=== PATIENT | female | born 1950 | race Caucasian/White ===

== ENCOUNTER 2019-06-03 05:57 | Inpatient (IN) | payer OTHER ==
--- NOTE | 2019-05-27 10:24 | RAD REPORT ---
EXAM DESCRIPTION: RAD - Chest Pa And Lat (2 Views) - 05/27/2019 10:03 am CLINICAL HISTORY: preop Chest pain. COMPARISON: Chest Pa And Lat (2 Views) dated 06/09/2016 FINDINGS: The lungs are mildly emphysematous but clear. The heart is mildly enlarged in size. No dis placed fractures. IMPRESSION: Mild COPD.
[2019-05-27 10:36] LABS: Absolute Lymphocytes (CBC) 1.9 K/uL (0.7-4.9); Basophils % 0.7 % (0-1.3); Hematocrit 42.4 % (36.0-45.0); Lymphocytes % 31.4 % (15.3-44.8); RBC Red Blood Cell Count 4.58 M/uL (3.86-4.86)
[2019-05-27 11:47] LABS: Urine Appearance CLEAR; Urine Bilirubin NEGATIVE (NEG); Urine Blood NEGATIVE (NEG); Urine Color YELLOW; Urine Glucose NEGATIVE (NEG); Urine Protein NEGATIVE (NEG); Urine Specific Gravity <=1.005 (1.005-1.030); Urine pH 7.5 (5.0-7.0)
[2019-05-27 11:53] LABS: Albumin 3.8 g/dL (3.4-5.0); Bilirubin Direct 0.2 mg/dL (0-0.2); Bilirubin Total 0.8 mg/dL (0.2-1.0); Protein, Total 7.2 g/dL (6.4-8.2)
[2019-05-27 12:05] LABS: ALT/SGPT 29 U/L (12-78); AST/SGOT 25 U/L (15-37); Albumin 3.7 g/dL (3.4-5.0); Alkaline Phosphatase 104 U/L (45-117); BUN Blood Urea Nitrogen 11 mg/dL (7-18); Bicarbonate 27 mmol/L (21-32); Bilirubin Total 0.7 mg/dL (0.2-1.0); Glucose Level 88 mg/dL (74-106); Potassium 4.4 mmol/L (3.5-5.1); Protein, Total 7.2 g/dL (6.4-8.2); Sodium Level 141 mmol/L (136-145)
[2019-05-27 12:23] LABS: Urine Microscopic Reflex ORDER UMIC
[2019-05-27 12:36] LABS: Urine Bacteria <20 /HPF (<20); Urine Culture Reflex Order NOT NEEDED; Urine RBC <5 /HPF (NONE SEEN)
[2019-06-03] MEDS ORDERED: Ringers Lactate 1,000 ML IV ONE ×2 (06:16→11:44)
[2019-06-03] MEDS ORDERED: CEFAZOLIN/SWI 1gm 1 GM/10 ML SYR ONE (06:17)
[2019-06-03] MEDS ORDERED: BUPIVACA 0.25%/EPI 0.0005% MDV 50 ML VIAL ONE ×2 (06:55→06:56)
[2019-06-03] MEDS ORDERED: NA CHLORIDE 0.9% 250 ML ONE (06:56)
[2019-06-03] MEDS ORDERED: BUPIVACA 0.5%/EPI 0.0005%/PF 30 ML VIAL ONE (06:56)
[2019-06-03] MEDS ORDERED: TRANEXAMIC ACID 1,000 MG in NA CHLORIDE 0.9% 50 ML IV SCH (07:15)
[2019-06-03] MEDS ORDERED: dexAMETHasone 4 MG/ML VIAL ONE (07:31)
[2019-06-03] MEDS ORDERED: FENTANYL CITR 250 MCG/5 ML ONE (07:31)
[2019-06-03] MEDS ORDERED: MIDAZOLAM HCL 2 MG/2 ML INJ ONE (07:31)
[2019-06-03] MEDS ORDERED: EPINEPHRINE/PF 1 MG/ML AMP ONE (07:31)
[2019-06-03] MEDS ORDERED: BUPIVACAINE 0.5% Inj,MDV 50 mL VIAL ONE (07:32)
[2019-06-03] MEDS ORDERED: LIDOCAINE 2% MPF 5 ML VIAL ONE (08:01)
[2019-06-03] MEDS ORDERED: PROPOFOL 200 MG/20 ML VIAL IV ONE (08:01)
[2019-06-03] MEDS ORDERED: ONDANSETRON 4 MG/2 ML VIAL ONE (08:34)
[2019-06-03] MEDS ORDERED: EPHEDRINE SULF 50 MG/ML VIAL ONE (09:15)
[2019-06-03] MEDS ORDERED: GLYCOPYRROLATE 0.2 MG/ML SYR ONE (09:16)
[2019-06-03] MEDS: HYDROMORPHONE HCL 1 MG/ML INJ ONE ×4 (11:41→12:10)
--- NOTE | 2019-06-03 11:50 | P.BOP ---
Preoperative diagnosis: PRIMARY OA RIGHT KNEE Postoperative diagnosis: SAME Primary procedure: RIGHT KNEE TOTAL KNEE ARTHROPLASTY WITH COMPUTER NAVIGATION Ppap Coordinator: ESTEFANI OLIVEROS (GAVE PAYROLL ASSISTANT SERVICES THROUGHOUT CASE) Estimated blood loss: 50 mL Specimen: BONE SHARDS AND SOFT TISSUE DEBRIDED Findings: SEVERE EBERNATED BONE MEDIAL COMPARTMENT Anesthesia: General Implants: FEM.PS2R; TIB.RPMTB2; TIB.WXUCBNDBWI8Y39.5mm; [id number]; Fluids & blood products: SIMP[KEVIN HV CEMENTw/GENT 2BATCHES; 0.25%MARCAINE w/ EPI 30 mL Transferred to: Recovery Room Condition: Good
[2019-06-03] MEDS ORDERED: HYDROMORPHONE ORAL 2 MG TAB PO PRN (11:53)
[2019-06-03] MEDS ORDERED: DOCUSATE NA 100 MG CAP PO PRN (11:53)
[2019-06-03] MEDS: Ringers Lactate 1,000 ML IV SCH (12:00)
[2019-06-03 12:08] LABS: Hematocrit 40.8 % (36.0-45.0)
--- NOTE | 2019-06-03 12:29 | RAD REPORT ---
EXAM DESCRIPTION: RAD - Knee Right 2 View - 06/03/2019 12:19 pm CLINICAL HISTORY: Postop right total knee prosthesis placement COMPARISON: None. FINDINGS: Right total knee prosthesis has been placed and is in good position. No suspicious or unex pected bone or implant finding. Normal postoperative air in the soft tissues. Skin afia are presen t anteriorly. No suspicious or unexpected finding.
[2019-06-03] MEDS ORDERED: MEPERIDINE HCL 50 MG/ML ONE (12:55)
[2019-06-03 15:22] VITALS: BMI 32.0
[2019-06-03] MEDS: ONDANSETRON 4 MG/2 ML VIAL IV PRN ×2 (17:25→23:21)
[2019-06-03] MEDS ORDERED: ALPRAZOLAM 0.5 MG TABLET PO PRN (18:02)
[2019-06-03] MEDS ORDERED: TRAMADOL HCL 50 MG TAB PO PRN (18:06)
--- NOTE | 2019-06-03 18:15 | P.CNS ---
Date of Consult: 06/03/19 Reason for Consult: Medical Management Requesting Physician: Brad Pino Primary Care Provider: Dr. Moody Chief Complaint: Status post total right knee replacement History of Present Illness: 68 yo CF presents to the hospital for right total knee replacement. I was consulted for medical management. Notes reviewed. Patient stable. Some nausea noted after surgery. Family at bedside. Allergies codeine Adverse Reaction (Unverified 05/27/19 09:39) Nausea/Vomiting Home medications list reviewed: Yes Home Medications: Alprazolam [Xanax] 0.5 mg PO DAILYPRN PRN 05/27/19 Amlodipine Besylate 10 mg PO [id number] 05/27/19 Atenolol [Tenormin] 50 mg PO BID 05/27/19 Furosemide [Lasix] 40 mg PO DAILY 05/27/19 L. Acidophilus/Pectin, [place] [Acidophilus Caplet] 1 each PO DAILY 05/27/19 Milk Thistle Seed Extract [Milk Thistle] 200 mg PO BID 05/27/19 Nitrofurantoin Monohyd/M-Cryst [Nitrofurantoin [place]-Mcr 100 mg] 100 mg PO BID Potassium Oral Tab [Klor-Con 10 mEq Tab] 20 meq PO DAILY 05/27/19 Trazodone [Desyrel] 50 mg PO BEDTIME 05/27/19 Vitamin E 400 unit PO DAILY 05/27/19 - Past Medical/Surgical History Diabetic: No -: hypertension -: hep c -: osteoarthritis -: cirrhosis -: anxiety -: left knee apa 1995 -: left knee surgery 1963 -: abd exploratory surg. 1975 Psychosocial/ Personal History: Patient lives at home. - Family History Mother Medical History: Hypertension Notes: father had lung ca - Social History Smoking Status: Current every day smoker Alcohol use: Yes CD- Drugs: No Caffeine use: Yes Place of Residence: Home Review of Systems is unable to be obtained Physical Examination Temp Pulse Resp BP Pulse Ox 97.3 F 62 16 105/74 94 06/03/19 16:00 06/03/19 16:00 06/03/19 16:00 06/03/19 16:00 06/03/19 16:00 General: Alert, In no apparent distress, Cooperative HEENT: Atraumatic Respiratory: Clear to auscultation bilaterally, Normal air movement Cardiovascular: Normal pulses, Regular rate/rhythm Gastrointestinal: Normal bowel sounds, Non-distended Musculoskeletal: Other (Knee in occilating machine. ) Neurological: Normal speech, Normal strength at 5/5 x4 extr, Normal tone Laboratory Data (last 24 hrs) 06/03/19 11:53: Hct Cancelled 06/03/19 11:53: Hgb 13.7, Hct 40.8 Conclusions/Impression: Impression: Status post knee replacement HTN Hepatitis C Anxiety Plan: Meds reviewed. Surgery reviewed. Will reassess patient in the am. Patient plans for home at discharge. Patient is stable at this time. Patient wants to use her own meds. Will follow along with Orthopedics Time Spent Managing Pts care (In Minutes): 20
[2019-06-03] MEDS: CEFAZOLIN/SWI 1gm 1 GM/10 ML SYR IVP SCH (18:37)
[2019-06-03] MEDS: ATENOLOL 50 MG TAB PO SCH (21:00)
[2019-06-03] MEDS: MILK THISTLE SEED EXTRACT 200 MG PO SCH (21:00)
[2019-06-03] MEDS: TRAZODONE 50 MG TABLET PO PRN (22:59)
[2019-06-04] MEDS: CEFAZOLIN/SWI 1gm 1 GM/10 ML SYR IVP SCH (01:30)
[2019-06-04] MEDS: AMLODIPINE 10 MG TAB PO SCH (06:00)
[2019-06-04 06:35] LABS: BUN Blood Urea Nitrogen 12 mg/dL (7-18); Bicarbonate 27 mmol/L (21-32); Glucose Level 113 mg/dL (74-106); Magnesium 2.2 mg/dL (1.8-2.4); Potassium 4.1 mmol/L (3.5-5.1); Sodium Level 143 mmol/L (136-145)
[2019-06-04] MEDS ORDERED: PNEUMOCOCCAL VACCINE 0.5 ML IMVAC ONE (08:00)
[2019-06-04] MEDS: Ringers Lactate 1,000 ML IV SCH (08:00)
[2019-06-04] MEDS: VITAMIN E 400 IU CAP PO SCH (08:37)
[2019-06-04] MEDS: LACTOBACILLUS/ACIDOPHILUS TAB PO SCH (08:38)
[2019-06-04] MEDS: POTASSIUM CL SA 10 MEQ TAB PO SCH (08:38)
[2019-06-04] MEDS: FUROSEMIDE 40 MG TABLET PO SCH (08:38)
[2019-06-04] MEDS: MILK THISTLE SEED EXTRACT 200 MG PO SCH ×2 (08:38→20:32)
[2019-06-04] MEDS: IBUPROFEN 400 MG TAB PO PRN ×2 (08:39→17:08)
[2019-06-04] MEDS: ATENOLOL 50 MG TAB PO SCH ×2 (08:39→20:30)
--- NOTE | 2019-06-04 09:31 | P.PN ---
Subjective Date of Service: 06/04/19 Primary Care Provider: Dr. Moody Chief Complaint: Status post total right knee replacement Subjective: Other (Patient stable this time. Still reports some mild pain.) Physical Examination - Vital Signs Temperature: 97.6 F Blood Pressure: 119/75 Pulse: 75 Respirations: 20 Pulse Ox (%): 99 - Physical Exam General: Alert, In no apparent distress, Oriented x3, Cooperative HEENT: Atraumatic Neck: Supple Respiratory: Clear to auscultation bilaterally, Normal air movement Cardiovascular: Normal pulses, Regular rate/rhythm Gastrointestinal: Normal bowel sounds Neurological: Normal speech, Normal strength at 5/5 x4 extr, Normal tone, Normal affect - Studies Laboratory Data (last 24 hrs) 06/04/19 05:40: Sodium 143, Potassium 4.1, BUN 12, Creatinine 0.52 L, Glucose 113 H, Magnesium 2.2 06/04/19 05:40: Hgb 13.0 06/03/19 11:53: Hct Cancelled 06/03/19 11:53: Hgb 13.7, Hct 40.8 Medications List Reviewed: Yes Assessment & Plan Discharge Plan: Home Plan to discharge in: 48 Hours Physician Review Additional Text: Impression: Severe right knee osteoarthritis Status post total right knee replacement, postop day 1 HTN Anxiety Plan: Medications reviewed. Blood pressure stable this time. Continue with DVT prophylaxis. Pain medications reviewed. Patient does not tolerate tramadol. Will add ibuprofen and [place] as needed for pain. Wean off IV pain medication. Physical therapy to be initiated. Encourage incentive spirometer. Dc IV fluids. Patient desires to go home at discharge. Will continue to see how she does over the next day or 2. Likely discharge as early as tomorrow or the following day pending clinical improvement. Will follow along with orthopedics. Time Spent Managing Pts Care (In Minutes): 55
[2019-06-04] MEDS: ONDANSETRON 4 MG/2 ML VIAL IV PRN ×3 (09:47→23:18)
[2019-06-04] MEDS: ENOXAPARIN 40 MG/0.4 ML SQ SCH (16:58)
--- NOTE | 2019-06-04 17:12 | P.PN ---
Date of Service: 06/04/19 (POD#1) S: THIS PATIENT WAS SEEN AFTER LUNCH HAVING EATEN HER FIRST MEAL. SHE IS QUITE CONCERNED AND CAUTIOUS ABOUT NAUSEA WHICH IS THE BASIS OF HER CONCERNED AND ALLERGIES TO OPIOIDS. FORTUNATELY, HER SCIATIC NERVE AND FEMORAL NERVE BLOCKS PERFORMED BY DR. TERI SMITH M.D. HAVE BEEN QUITE EFFECTIVE AND PROLONGED. O: VITAL SIGNS ARE STABLE, THE PATIENT IS AFEBRILE, HGB IS STABLE AT 13.0PAIN PERCEPTION HAS BEEN 2, 2, 7, 5, 0, 0/10 INTENSITY SO FAR. BANDAGE IS CLEAN DRY AND INTACT, AND X-RAY SHOWS EXCELLENT POSITION FOR PROSTHETIC COMPONENTS. NV EXAM IS INTACT WITH THE PATIENT DEMONSTRATING DORSIFLEXION OF TOES AND ANKLE WITH NORMAL SENSATION TO LOWER LEG, FOOT AND FIRST WEBSPACE. CPM WAS LEFT ON THROUGH THE NIGHT THE PATIENT WAS MORE COMFORTABLE WITH MOVEMENT AND DESCRIBED A DULL ACHE OCCURRING WHENEVER IT WAS STOPPED. PHYSICAL THERAPY MADE 51 FEET WITH FWW IN THE A.M., AND 170 FEET IN THE EARLY AFTERNOON SESSION. THE PATIENT HAS USED ONLY ONE TRAMADOL TABLET DESCRIBED UNSATISFACTORY. NORCO 7.5 /325 TABLETS ARE AVAILABLE TO BE USED TOLERATED. THE PATIENT'S NEAR PHOBIA REGARDING NAUSEA IS MAKING HER RATHER STOIC. A: GREAT PROGRESS POSTOP DAY #1, PROBABLY PARTLY DUE TO HER LONG LASTING NERVE BLOCKS. P: CONTINUE MOBILIZATION TOLERATED.
[2019-06-04] MEDS: MORPHINE 4 MG/ML SYR IV PRN ×2 (18:22→23:18)
[2019-06-04] MEDS: HYDROCODONE/APAP 7.5/325 MG TAB PO PRN (20:30)
[2019-06-04] MEDS: TRAZODONE 50 MG TABLET PO PRN (20:30)
[2019-06-04 22:07] VITALS: O2SAT 97
[2019-06-05] MEDS: MORPHINE 4 MG/ML SYR IV PRN (03:30)
[2019-06-05] MEDS: AMLODIPINE 10 MG TAB PO SCH (05:33)
[2019-06-05] MEDS: VITAMIN E 400 IU CAP PO SCH (08:14)
[2019-06-05] MEDS: LACTOBACILLUS/ACIDOPHILUS TAB PO SCH (08:14)
[2019-06-05] MEDS: HYDROCODONE/APAP 7.5/325 MG TAB PO PRN ×3 (08:14→21:11)
[2019-06-05] MEDS: POTASSIUM CL SA 10 MEQ TAB PO SCH (08:14)
[2019-06-05] MEDS: FUROSEMIDE 40 MG TABLET PO SCH (08:14)
[2019-06-05] MEDS: ATENOLOL 50 MG TAB PO SCH ×2 (08:15→21:11)
[2019-06-05] MEDS: MILK THISTLE SEED EXTRACT 200 MG PO SCH ×2 (08:15→21:00)
--- NOTE | 2019-06-05 10:04 | P.PN ---
Subjective Date of Service: 06/05/19 Primary Care Provider: Dr. Moody Chief Complaint: Status post total right knee replacement Subjective: Improving, Doing well Physical Examination - Vital Signs Temperature: 97.5 F Blood Pressure: 146/83 Pulse: 58 Respirations: 18 Pulse Ox (%): 97 - Physical Exam General: Alert, In no apparent distress, Oriented x3, Cooperative HEENT: Atraumatic Neck: Supple Respiratory: Clear to auscultation bilaterally, Normal air movement Cardiovascular: Normal pulses, Regular rate/rhythm Gastrointestinal: Normal bowel sounds, Soft and benign, Non-distended Neurological: Normal speech, Normal strength at 5/5 x4 extr, Normal tone, Normal affect - Studies Laboratory Data (last 24 hrs) 06/05/19 05:35: Hgb 11.6 L Medications List Reviewed: Yes Assessment & Plan Discharge Plan: Home Plan to discharge in: 24 Hours Physician Review Additional Text: Impression: Severe right knee osteoarthritis Status post total right knee replacement, postop day 2 HTN Anxiety Plan: Severe right knee osteoarthritis Status post total right knee replacement, postop day 2: Continue with physical therapy. Encourage incentive spirometer. Pain seems to be better controlled. Likely discharge as early as today or tomorrow pending ortho evaluation. Patient clinically stable for discharge. Home health and physical therapy has been arranged. Patient will continue with DVT prophylaxis at discharge. This will be arranged by orthopedics. I will turn the service over to Dr. Fan tomorrow. She will continue to follow along with Orthopedics. HTN: Continue with home medication. Anxiety: Continue with home medication. Time Spent Managing Pts Care (In Minutes): 55
[2019-06-05] MEDS: ENOXAPARIN 40 MG/0.4 ML SQ SCH (17:58)
--- NOTE | 2019-06-05 19:41 | P.PN ---
Date of Service: 06/05/19 (POD#2) S: THIS PATIENT WAS SEEN AT LUNCH EATING WITHOUT NAUSEA. SHE IS TOLERATING PAIN CONTROL WITH NORCO 7.5/325 AND MORPHINE IV. FORTUNATELY, HER SCIATIC NERVE AND FEMORAL NERVE BLOCKS CEASED TO HAVE EFFECT LAST NIGHT AND SHE HAS C/O DISCOMFORT WITH CPM USE. O: VITAL SIGNS ARE STABLE, THE PATIENT IS AFEBRILE, HGB DROPPED FROM 13.0 TO 11.6 THIS AM. PAIN PERCEPTION HAS BEEN 0, 0, 7, 7, 6, 5/10. BANDAGE IS CLEAN DRY AND INTACT. NV EXAM IS INTACT WITH THE PATIENT DEMONSTRATING DORSIFLEXION OF TOES AND ANKLE WITH NORMAL SENSATION TO LOWER LEG, FOOT AND FIRST WEBSPACE. CPM WAS REAPPLIED THIS AFTERNOON WITH EMPHASIS THAT MOTION MUST OCCUR ARE FIBROSIS WILL RUIN THE POSSIBILITY OF AN ACCEPTABLE RANGE OF MOTION. SHE IS ENCOURAGED TO USE HER PAIN MEDICATION NEEDED TO MAINTAIN USE OF THE CPM MACHINE WHILE IT'S AVAILABLE. SHE WENT 40' & 210' WITH PT IN THE A.M., AND 260' FEET IN THE AFTERNOON SESSION. A: GOOD PROGRESS POSTOP DAY #2, DESPITE NERVE BLOCKS ENDING. P: CONTINUE MOBILIZATION TOLERATED. PLAN DISCHARGE TOMORROW AFTER AM PT SESSION.
[2019-06-05] MEDS: TRAZODONE 50 MG TABLET PO PRN (21:11)
[2019-06-06] MEDS: AMLODIPINE 10 MG TAB PO SCH ×2 (06:00→06:19)
[2019-06-06] MEDS: HYDROCODONE/APAP 7.5/325 MG TAB PO PRN ×2 (06:19→13:02)
[2019-06-06] MEDS: ATENOLOL 50 MG TAB PO SCH (08:30)
[2019-06-06] MEDS: MILK THISTLE SEED EXTRACT 200 MG PO SCH (08:30)
[2019-06-06] MEDS: LACTOBACILLUS/ACIDOPHILUS TAB PO SCH (08:30)
[2019-06-06] MEDS: POTASSIUM CL SA 10 MEQ TAB PO SCH (08:31)
[2019-06-06] MEDS: FUROSEMIDE 40 MG TABLET PO SCH (08:33)
[2019-06-06] MEDS: VITAMIN E 400 IU CAP PO SCH (08:34)
[2019-06-06 12:19] VITALS: BP 122/71; TEMP 97.1
--- NOTE | 2019-06-06 13:34 | P.PN ---
Date of Service: 06/06/19 (POD#3) S: THIS PATIENT UP IN HALLWAY WITH PT. SHE WENT 260' WITH FWW THIS AM. O: VITAL SIGNS ARE STABLE, THE PATIENT IS AFEBRILE, HGB UP FROM 11.6 TO 12.1 THIS AM. PAIN PERCEPTION HAS BEEN 7, 6, 5, 0, 0/10. BANDAGE IS TO BE CHANGED PRIOR TO DISCHARGE. NV EXAM IS INTACT WITH THE PATIENT DEMONSTRATING DORSIFLEXION OF TOES AND ANKLE WITH NORMAL SENSATION TO LOWER LEG, FOOT AND FIRST WEBSPACE. CPM RUNNING AT 70* THIS AFTERNOON. PATIENT INSTRUCTED IN LEFT FOOT MOTOR TECHNIQUE FOR HOME CPM, INSURANCE REFUSED TO COVER MACHINE. SHE IS ENCOURAGED TO USE HER PAIN MEDICATION NEEDED PRIOR TO HH PT. A: GOOD PROGRESS POSTOP DAY #3, PATIENT AGREEABLE FOR DISCHARGE. P: CONTINUE MOBILIZATION AT HOME. PLAN DISCHARGE TODAY AFTER AFTERNOON PT SESSION IN PROGRESS. MY PAPERWORK [facility]YS [facility] CONFIRMED 05/20/19 9:00 AM. F/U MY OFFICE IN 10D FOR [place] OUT. RESTART ASA81 MG. DAILY. CONTINUE LOVENOX 40 MG SQ DAILY. HH PT FOR GAIT AND TRANSFERS WBAT RLE. NORCO 7.5 1 PO Q 6 HRS PRN PAIN,#40.
--- NOTE | 2019-07-02 17:09 | OP ---
Date of Procedure: 06/03/2019 Surgeon: Brad Pino MD Lubricator Granulator: Gwendolyn Manning, gave very necessary student assistance counselor services throughout the case. Preoperative Diagnosis: Primary osteoarthritis, right knee. Postoperative Diagnosis: Primary osteoarthritis, right knee. Procedure: Right total knee arthroplasty with computer navigation. Indications: This patient has had severe progressive osteoarthritis. She has elected to proceed aft er discussion of risks and benefits with all questions answered. Technique: The patient was taken to the operating room and given a general anesthesia. She was plac ed in the supine position with a bolster under the right hip. The tourniquet was applied to the prox imal right thigh. The limb was suspended in traction and prepping and draping of the right lower ext remity was carried out. An impervious drape was placed over the foot and ankle. The incision was dr awn over the anterior knee. Tourniquet was elevated to 250 mmHg. The incision was made longitudinal ly from 4 cm above the patella to 4 cm below. The medial parapatellar approach was utilized with dwight rsion of the patella. The patella was measured in thickness and then the 35 mm diameter patellar but ton was chosen as the best fit. The cutting jig was set and the articular surface was excised with o scillating saw. PEG holes were drilled. The prosthetic button was put in position and measured. Th e measurement was equal to that before the cut was made. Metal shield was placed after the prostheti c button was removed. The anterior knee was sharply debrided, removing portions of the anterior cruc iate ligament and the origin of the posterior cruciate ligament along with meniscal portions that cou ld be reached from the anterior aspect. There was also debridement of the anterior aspect of the dis nilton femur just above the articular margin. Then, 3 mm threaded pins were placed within the incision in the distal femur to support the femoral array and through puncture wounds in the mid tibial area t o support the tibial array. Once the arrays were positioned, then the limb was moved in circumductio n to determine the center of the femoral head rotation. The registration of the femur and tibia were carried out in sequence as indicated by the computer navigation program. This selected size 2 femor al and tibial components. These were excepted and the tibial cutting jig was navigated into position and secured the tibial cut was made and verified. A tensiometer was placed in the knee at that poin t. Small adjustments were made in the ligament balance and the cutting jig for the distal femur was navigated into position that cut was made. The 4 in 1 cutting jig was then navigated into position a nd the anterior cut was made for the distal femur that also was verified and then the additional post erior and chamfer cuts were made. The cutting box was placed in the center of the distal femur and t he reciprocating saw was used to remove the notch. The distal femoral prosthetic component trial was put in position and fit nicely. It was then removed. Preparation of the proximal tibia was accompl ished. The trials were placed in position. The knee had adequate extension and flexion and stabilit y. Therefore, all trial components were removed. Simpulse lavage was initiated and then the distal femur was dried with suction. Two batches of simplex HV cement with gentamicin were placed in a [employer]me nt gun for injection technique and the components were cemented in place first the tibial component a nd then the femoral component and then the patellar button. Excess cement was curetted away and the cement was allowed 18 minutes to set. The insert positioned for the cement to set was the 10 mm inse rt trial. The 12.5 mm trial was put in position and found stability to be improved and optimal. At that point, the permanent insert was inserted and range of motion was excellent, stability was excell ent. The knee was irrigated again and then closure effected with #1 Vicryl for fascial layers in int errupted sutures 2-0 Vicryl for subcutaneous layers and skin afia for the skin. The margins of th e skin incision were injected with 30 mL of 0.25% Marcaine with epi. The patient was taken to the re covery room with estimated blood loss 50 mL. The bandage applied was an Aquacel bandage covered with soft roll and an Jt wrap. In the recovery room, the patient was set up in a CPM machine moving 0 t o 60 degrees. The patient was in good condition and procedure was well tolerated. CARLEY/OBDULIA Voice ID: [id number] Report ID: [id number]
--- NOTE | 2019-07-12 08:53 | DS ---
Date of Discharge: 06/06/2019 Millicent Conte is a 68-year-old female, who suffered from primary osteoarthritis of the right knee with profound limitations and persistent pain. After discussion of risks and benefits, she elected to proceed with elective right total knee arthroplasty. The procedure was accomplished with computer navigation and approximately 50 mL of blood loss with insertion of femoral SIGMA femur, posterior stabilized size 2 right. The M.B.T. tibial tray was a rotating platform, size 2. Tibial insert was also a size 2 rotating platform posterior stabilized prosthesis 12.5 mm thick. An outside diameter of 35-mm oval dome patella was cemented along with the femoral and tibial prosthetic component with simplex HV cement with 2 batches placed in a cement gun for pressurized technique. At the end of the operation, 30 mL of 0.25% Marcaine were injected into the incision in soft tissue area. The patient was taken to the recovery room and placed in a CPM machine at 0-60 degrees range of motion set for a slow rate. Aquacel bandages were applied for sealing and protecting the incisions. Dr. Lawrence Ornelas was consulted for medical management as the patient has a history of hypertension, hepatitis C, osteoarthritis, cirrhosis, anxiety. On the first postop day, the patient was doing well except for concerns and problems with nausea limited pain control which was more prolonged than usual. Her vital signs were stable. Her hemoglobin was stable at 13.0. Pain chart was 2, 2, 7, 5, 0, 0/10 in intensity. X-ray showed excellent position for prosthetic components. Neurovascular exam was intact with the patient demonstrating dorsiflexion of toes and ankle with normal sensation to lower leg, foot, and the first webspace. CPM was left on through the night by the patient as she was more comfortable with movement and describes a dull ache occurring whenever it was stopped. The initial therapy effort went 51 feet with a front wheeled walker in the morning and 170 feet in the early afternoon session with a nerve block still performing pain control. The patient had used only 1 tramadol for pain, this was considered great progress for postop day #1. On postoperative day 2, the patient was seen eating at lunch without nausea. Her concerns about nausea were alleviated. She was tolerating pain control using Greenback 7.5/325 APAP and morphine IV. The CPM was now causing some discomfort and limited to 70 degrees. Vital signs were stable. The patient was afebrile with hemoglobin dropping from 13.0 to 11.6 in the morning tests. Pain perception was 0, 0, 7, 7, 6, 5/10. Bandage remained clean, dry, and intact. Neurovascular exam was intact. CPM was reapplied with the emphasis that the motion has to occur or fibrosis will rule out possibility of an acceptable range of motion. The patient had gone 40 feet and 210 feet with physical therapy in the morning and 260 feet in the afternoon session. This was excellent progress on postop day #2 despite the ending of nerve block pain control. On day 3, the patient was up in the hallway with physical therapy, having gone 260 feet with a front wheeled walker in the morning. Vital signs were stable. Hemoglobin was up from 11.6 to 12.1. Pain perception was 7, 6, 5, 0, 0/10. Bandage is to be changed prior to the patient's discharge. Neurovascular exam is intact with the patient demonstrating dorsiflexion of toes and ankle and normal sensation to the lower leg splint and first web space. CPM was running at 70 degrees. The patient's insurance would not allow a CPM for home use, the patient was instructed in using the left foot, has power for passive range of motion for the right knee while sitting on the edge of the bed. Discharge was planned for after the afternoon physical therapy session, which was in progress. [facility] had confirmed initiating in-home care on 05/20/2019 at 9 a.m. Follow up in my office is recommended for 10 days post discharge for afia out. She may restart her aspirin 81 mg tablets daily and continue Lovenox 40 mg subcu daily for total of 14 days postop. Home health physical therapy will be for gait and transfers, weightbearing as tolerated, right lower extremity. Greenback 7.5 one p.o. q.6 hours p.r.n. pain was prescribed with #40 to be dispensed. CARLEY/OBDULIA Voice ID: [id number] Report ID: [id number]
== END 2019-06-06 16:06 | disposition home health service (06) | DRG 470 ==
LOC: OR 05:57 → 2ND 11:53 → 4TH 06-05 17:37
PROVIDERS: ADMIT Orthopaedic Surgery; ATTEND Orthopaedic Surgery
PROC: 8E0YXBZ Computer Assisted Procedure of Lower Extremity (ICD-10-PCS; 2019-06-03)
PROC: 0SRC0J9 Replacement of Right Knee Joint with Synthetic Substitute, Cemented, Open Approach (ICD-10-PCS; principal; 2019-06-03 07:30)
DX: M17.11 Unilateral primary osteoarthritis, right knee (principal); I10 Essential (primary) hypertension; F17.210 Nicotine dependence, cigarettes, uncomplicated; F32.9 Major depressive disorder, single episode, unspecified; F41.9 Anxiety disorder, unspecified; I35.0 Nonrheumatic aortic (valve) stenosis; B19.20 Unspecified viral hepatitis C without hepatic coma; Z23 Encounter for immunization; Z88.5 Allergy status to narcotic agent
CPT/HCPCS: 36415; 71046; 80048; 80053; 80076; 81003; 81015; 83036; 83735; 85014; 85018; 85025; 85610; 85730; 86850; 86900; 86901; 88304; 88311; 97110; 97116; 97139; 97163; 97530; J0171; J0690; J1170; J1650; J2175; J2250; J2405; J2704; J3010

== ENCOUNTER 2019-10-15 05:50 | Inpatient (IN) | payer OTHER ==
--- NOTE | 2019-10-08 10:40 | EKG ---
Test Date: 2019-10-08 Test Time: 09:35:12 Glass Vial Filler: JAN MEASUREMENT RESULTS: Intervals: Rate: 48 RI: 182 QRSD: 92 QT: 468 QTc: 418 [place]: P: 52 RI: 182 QRS: 48 T: 59 INTERPRETIVE STATEMENTS: Marked sinus bradycardia Abnormal ECG No previous ECG available for comparison Electronically Signed On 10-08-19 10:39:39 NETWORK AND THREAT SUPPORT SPECIALIST by Dusty Baca
[2019-10-08 10:54] LABS: Absolute Lymphocytes (CBC) 1.9 K/uL (0.7-4.9); Basophils % 0.8 % (0-1.3); Hematocrit 40.5 % (36.0-45.0); MPV 9.7 fL (7.6-11.3); RBC Red Blood Cell Count 4.47 M/uL (3.86-4.86)
[2019-10-08 11:05] LABS: Protime INR 1.11
[2019-10-08 11:41] LABS: BUN Blood Urea Nitrogen 14 mg/dL (7-18); Bicarbonate 27 mmol/L (21-32); Glucose Level 91 mg/dL (74-106); Sodium Level 142 mmol/L (136-145)
[2019-10-15] MEDS ORDERED: Ringers Lactate 1,000 ML IV ONE (06:00)
[2019-10-15] MEDS ORDERED: CEFAZOLIN/SWI 2gm 2 GM/20 ML SYR ONE (06:00)
[2019-10-15] MEDS ORDERED: SCOPOLAMINE HYDROBROMIDE PATCH TD ONE (06:34)
[2019-10-15] MEDS ORDERED: LIDOCAINE 2% MPF 5 ML VIAL ONE ×2 (06:35→07:35)
[2019-10-15] MEDS ORDERED: NS 0.9% VIAL 20 ML ONE (06:35)
[2019-10-15] MEDS ORDERED: FENTANYL CITR 100 MCG/2 ML ONE (06:36)
[2019-10-15] MEDS ORDERED: MIDAZOLAM HCL 2 MG/2 ML INJ ONE ×2 (06:36)
[2019-10-15] MEDS ORDERED: dexAMETHasone 10 MG/ML VIAL ONE ×2 (06:36→07:53)
[2019-10-15] MEDS: BUPIVACA 0.5%/EPI 0.0005%/PF 30 ML VIAL ONE ×2 (06:58→09:37)
[2019-10-15] MEDS ORDERED: TRANEXAMIC ACID 1,000 MG in NA CHLORIDE 0.9% 50 ML IV SCH (07:15)
[2019-10-15] MEDS ORDERED: ROCURONIUM 50 MG/5 ML VIAL IV ONE (07:35)
[2019-10-15] MEDS ORDERED: PROPOFOL 200 MG/20 ML VIAL IV ONE (07:35)
[2019-10-15] MEDS ORDERED: KETOROLAC 30 MG/ML INJ ONE (07:53)
[2019-10-15] MEDS ORDERED: KETAMINE HCL 500 MG/5 ML VIAL ONE (07:53)
[2019-10-15] MEDS ORDERED: ONDANSETRON 4 MG/2 ML VIAL ONE (07:55)
[2019-10-15] MEDS ORDERED: GLYCOPYRROLATE 0.2 MG/ML SYR ONE (08:16)
[2019-10-15] MEDS: Ringers Lactate 1,000 ML IV ONE ×2 (08:41→09:02)
[2019-10-15] MEDS ORDERED: NEOSTIGMINE 1 MG/ML -5 ML ONE (09:40)
[2019-10-15] MEDS ORDERED: ALPRAZOLAM 1 MG TABLET PO PRN (10:40)
--- NOTE | 2019-10-15 10:40 | P.BOP ---
Preoperative diagnosis: left knee osteoarthritis Postoperative diagnosis: same Primary procedure: left total knee arthroplasty Acid Painter: NONE,NONE Estimated blood loss: 20 cc Specimen: left knee bone remnants Findings: see dictation Anesthesia: General Complications: None Implants: Biomet-Zim Persona Size 5 STD femur, E tibia, 11 mm poly, 32 mm patella Fluids & blood products: per anesthesia; TT: 85 mins @ 300 mmHg Transferred to: Recovery Room Condition: Good
[2019-10-15] MEDS ORDERED: ONDANSETRON 4 MG/2 ML VIAL IV PRN (10:41)
[2019-10-15] MEDS ORDERED: DOCUSATE NA 100 MG CAP PO PRN (10:41)
[2019-10-15] MEDS ORDERED: PROMETHAZINE 25 MG/ML VIAL ONE (10:47)
[2019-10-15] MEDS ORDERED: TRAMADOL HCL 50 MG TAB PO PRN (10:49)
[2019-10-15] MEDS: HYDROMORPHONE HCL 1 MG/ML INJ ONE ×2 (10:49→11:01)
--- NOTE | 2019-10-15 11:38 | RAD REPORT ---
EXAM DESCRIPTION: RAD - Knee Left 2 View - 10/15/2019 11:07 am CLINICAL HISTORY: Left knee surgery FINDINGS: Left knee arthroplasty has been performed. Prosthesis is in good position. No fracture or dislocation is seen
[2019-10-15 12:07] LABS: Hematocrit 37.5 % (36.0-45.0)
[2019-10-15 14:01] VITALS: BMI 32.1
[2019-10-15] MEDS: CEFAZOLIN/SWI 1gm 1 GM/10 ML SYR IV SCH (17:24)
[2019-10-15] MEDS: HYDROCODONE/APAP 7.5/325 MG TAB PO PRN (20:32)
[2019-10-15] MEDS: atenoloL 50 MG TAB PO SCH (22:05)
[2019-10-15] MEDS: TRAZODONE 50 MG TABLET PO SCH (22:06)
[2019-10-15] MEDS: GABAPENTIN 100 MG CAP PO SCH (22:06)
[2019-10-16] MEDS: CEFAZOLIN/SWI 1gm 1 GM/10 ML SYR IV SCH ×2 (01:22→08:55)
[2019-10-16] MEDS: HYDROCODONE/APAP 7.5/325 MG TAB PO PRN ×3 (01:34→17:32)
[2019-10-16] MEDS: ENOXAPARIN 30 MG/0.3 ML SQ SCH ×2 (05:46→17:33)
[2019-10-16] MEDS: AMLODIPINE 5 MG TAB PO SCH (05:47)
[2019-10-16] MEDS: FUROSEMIDE 40 MG TABLET PO SCH (08:54)
[2019-10-16] MEDS: atenoloL 50 MG TAB PO SCH ×2 (08:55→20:42)
[2019-10-16] MEDS: POTASSIUM CL SA 10 MEQ TAB PO SCH (08:55)
[2019-10-16] MEDS: GABAPENTIN 100 MG CAP PO SCH ×2 (08:55→20:39)
[2019-10-16] MEDS: CELECOXIB 100 MG CAPSULE PO SCH (08:55)
[2019-10-16] MEDS: MORPHINE 2 MG/ML SYR IV PRN (09:02)
--- NOTE | 2019-10-16 11:54 | P.PN ---
Subjective Date of Service: 10/16/19 Chief Complaint: s/p left TKA Subjective: Ambulating, Improving, Working w/ PT Physical Examination - Vital Signs Temperature: 97.5 F Blood Pressure: 96/62 Pulse: 51 Respirations: 18 Pulse Ox (%): 98 - Physical Exam General: Alert, In no apparent distress Musculoskeletal: Other (LLE: dressing c/d/i; +EHL/GSC/TA; sensation grossly intact distally) - Studies Laboratory Data (last 24 hrs) 10/15/19 11:07: Hgb 12.9, Hct 37.5 Assessment And Plan - Plan Millicent is a 68 yo female s/p L TKA POD#1 -continue with PT; WBAT LLE -pain control -lovenox for DVT prophylaxis -d/c home tomorrow
[2019-10-16] MEDS: TRAZODONE 50 MG TABLET PO SCH (20:39)
[2019-10-17] MEDS: HYDROCODONE/APAP 7.5/325 MG TAB PO PRN (01:04)
[2019-10-17] MEDS: MORPHINE 2 MG/ML SYR IV PRN (03:22)
[2019-10-17] MEDS: ENOXAPARIN 30 MG/0.3 ML SQ SCH (05:40)
[2019-10-17] MEDS: AMLODIPINE 5 MG TAB PO SCH (05:40)
[2019-10-17] MEDS: atenoloL 50 MG TAB PO SCH (08:49)
[2019-10-17] MEDS: CELECOXIB 100 MG CAPSULE PO SCH (08:50)
[2019-10-17] MEDS: FUROSEMIDE 40 MG TABLET PO SCH (08:50)
[2019-10-17] MEDS: GABAPENTIN 100 MG CAP PO SCH (08:50)
[2019-10-17] MEDS: POTASSIUM CL SA 10 MEQ TAB PO SCH (08:50)
[2019-10-17 08:56] VITALS: O2SAT 97
--- NOTE | 2019-10-17 08:57 | OP ---
Date of Procedure: 10/15/2019 Surgeon: All Muñiz MD Preoperative Diagnosis: Left knee osteoarthritis. Postoperative Diagnosis: Left knee osteoarthritis. Procedure Performed: Left total knee arthroplasty. Anesthesia: General. Fluids: Per Anesthesia record. Estimated Blood Loss: 20 mL. Tourniquet Time: 85 minutes at 300 mmHg. Complications: None. Implants: Biomet Rosendo Persona knee for a size 5 standard CR femur, and size E tibia 11 mm CR poly, and size 32 mm patella. Indications For Procedure: Millicent is a 68-year-old female who presented to my clinic with end-stage osteoarthritis of her left knee. Has failed conservative treatment measures including corticosteroid injections, NSAIDs, with pain affecting her activities of daily living. I discussed with the patient at length risks and benefits associated with operative and nonoperative treatment. She expressed understanding and elected to proceed with operative treatment. Description Of Procedure: After informed consent, the patient was identified in the preoperative holding area. The left lower extremity was marked. The patient was then brought back to the PACU where she underwent an adductor canal block for aid with postoperative pain control by anesthesia. She was then taken back to the operating room, transferred to the operating table in supine fashion, placed under general anesthesia. The left lower extremity was then prepped and draped in usual sterile fashion. A time-out was initiated. Correct patient and procedure were confirmed and identified. The patient had received her preoperative prophylactic antibiotics. The left lower extremity was then exsanguinated using an Esmarch. Tourniquet was inflated to 300 mmHg. A 15 cm longitundina incision was made centered over the patella and extended proximally and distally. Dissection was then taken down to the extensor mechanism, which was followed by medial parapatellar arthrotomy performed using a 10 blade. The patella was everted, was noted to have significant chondromalacia and arthritis changes. Osteophytes were then debrided using a rongeur. The medial aspect of the extensor mechanism was then carefully dissected off the proximal tibia for exposure. A fat pad was then excised as well as lateral and medial meniscus and the ACL The knee was then placed into flexion. Proximal synovium was then debrided using Bovie electrocautery. The guides had been made preoperatively using MRI of her left knee and cutting guide was then placed on this over the distal femur. Once in proper position, guide pins were placed. The distal cutting guide was then placed on the anterior femur and distal cuts were then made. Chamfer cutting guide was placed on the distal end of the femur and anteroposterior cuts as well as chamfer cuts were made. Bone remnants were then send to the back table and send for pathology. Next, attention was taken to the proximal tibia where a cutting jig was placed on the proximal tibia. Guide pins were placed, alignment radha was used to ensure proper alignment as well as posterior slope. Once this was confirmed, a cutting jig was then placed over the guide pins and proximal tibia was cut. Javid wing was used prior to the cuts to ensure proper depth of the cuts and this was confirmed. A 10 mm spacer block was then placed and there was good overall fit both extension and flexion. Trial implants were placed and there was good overall balance, flexion-extension using an 11 mm spacer. Next, attention was taken to the patella, calipers were used to measure the depth of the patella and 8 mm was cut off from the surface of the patella using the patellar cutting guide. It was measured as size 32, patella was selected. Patella was drilled. Tibial and femoral trial components were the ranged and there was good overall range of motion as well as alignment and stability, the trial implants were removed. The wound was then irrigated thoroughly, was pulse lavaged. Local anesthetic with epinephrine was then injected into the posterior capsule, medial and lateral aspect of the knee as well as the periosteum. When this was completed the cement was prepared on the back table and was placed on the implants and on the tibia and femur. A size E tibia wa placed followed by a size 5 standard CR femur, excess cement was removed using a [place] elevator. Cement was then placed on the undersurface of the patella and a size 32 patella was put into position. The knee was held in full extension and as the cement hardened. Once the cement hardened, all excess cement was removed using osteotome then [place] elevator. The tourniquet was let down. Hemostasis was achieved using Bovie electrocautery. The extensor mechanism was approximated using an interrupted and running #1 Vicryl. The fascia was then approximated using an 0 Vicryl. Subcutaneous tissue was approximated using a 2-0 Vicryl. Skin was approximated using afia. The knee was ranged. The patient had full range of motion with good overall tracking of the patella and good flexion and extension with varus-valgus stability. Sterile dressings were applied. The patient was awakened and transferred to PACU in stable condition. Postoperative Plan: She will be admitted to the floor for routine pain control , physical therapy, and monitoring of her blood pressure with history of hypertension. She will stay at least 2 midnights and we will monitor her H and H postoperatively. JUAN JOSE/OBDULIA Voice ID: [id number] Report ID: [id number]
--- NOTE | 2019-10-17 11:55 | P.DS ---
Admission Date: 10/15/19 Discharge Date: 10/17/19 Disposition: ROUTINE DISCHARGE Discharge Condition: GOOD Reason for Admission: s/p left TKA Consultations: none Procedures: left total knee arthroplasty on 10/15/2019 Brief History of Present Illness: Millicent is a 68 yo female w/ PMHx of HTN admitted after L TKA on 10/15/2019 in stable condition. Hospital Course: Millicent did well postoperatively. She was transferred to the floor in stable condition and physical therapy was consulted. Her vital signs remained stable during her stay and she was discharged in stable condition and her pain controlled on 10/18/2019. She was given enoxaparin while in the hospital for DVT prophylaxis and was discharged with Xarelto for home DVT prophylaxis. Vital Signs/Physical Exam: Temp Pulse Resp BP Pulse Ox 97.8 F 62 17 117/57 L 97 10/17/19 08:00 10/17/19 08:50 10/17/19 08:00 10/17/19 08:50 10/17/19 08:00 Laboratory Data at Discharge: WBC 6.6 K/uL (4.3-10.9) 10/08/19 09:45 Hgb 12.9 g/dL (12.0-15.0) 10/15/19 11:07 Hct 37.5 % (36.0-45.0) 10/15/19 11:07 Plt Count 117 K/uL (152-406) L 10/08/19 09:45 PT 13.1 SECONDS (9.5-12.5) H 10/08/19 09:45 INR 1.11 10/08/19 09:45 APTT 30.9 SECONDS (24.3-36.9) 10/08/19 09:45 Sodium 142 mmol/L (136-145) 10/08/19 09:45 Potassium 4.0 mmol/L (3.5-5.1) 10/08/19 09:45 BUN 14 mg/dL (7-18) 10/08/19 09:45 Creatinine 0.54 mg/dL (0.55-1.3) L 10/08/19 09:45 Glucose 91 mg/dL (74-106) 10/08/19 09:45 Home Medications: Alprazolam [Xanax] 1 mg PO DAILYPRN PRN 05/27/19 Amlodipine Besylate 5 mg PO [id number] 05/27/19 Atenolol [Tenormin*] 50 mg PO BID 05/27/19 Furosemide [Lasix*] 40 mg PO DAILY 05/27/19 L. Acidophilus/Pectin, [place] [Acidophilus Caplet] 1 each PO DAILY 05/27/19 Milk Thistle Seed Extract [Milk Thistle] 200 mg PO BID 05/27/19 Potassium Oral Tab [Klor-Con 10 mEq Tab*] 20 meq PO DAILY 05/27/19 Trazodone [Desyrel*] 50 mg PO BEDTIME 05/27/19 Vitamin E 400 unit PO DAILY 05/27/19 Gabapentin [Neurontin*] 100 mg PO BID 10/08/19 Naproxen Sodium [Aleve] 220 mg PO DAILY 10/08/19 Hydrocodone 7.5/APAP 325 [Clarence 7.5/325 mg*] 1 tab PO Q4H PRN tab 10/17/19 Patient Discharge Instructions: keep dressing clean and dry; change aquacell as needed; begin taking Xarelto tomorrow morning (10/18/2019) and take once daily Diet: Regular Activity: Weight bearing as tolerated Followup: All Muñiz MD [ACTIVE - CAN ADMIT] - 1-2 Weeks
[2019-10-17 15:10] VITALS: BP 125/73; TEMP 97.7
== END 2019-10-17 12:24 | disposition home or self-care (01) | DRG 470 ==
LOC: OR 05:50 → 2ND 10:42
PROVIDERS: ADMIT Orthopaedic Surgery Sports Medicine; ATTEND Orthopaedic Surgery Sports Medicine
PROC: 0SRD0J9 Replacement of Left Knee Joint with Synthetic Substitute, Cemented, Open Approach (ICD-10-PCS; principal; 2019-10-15 07:30)
DX: M17.12 Unilateral primary osteoarthritis, left knee (principal); I10 Essential (primary) hypertension; F41.9 Anxiety disorder, unspecified; Z96.651 Presence of right artificial knee joint
CPT/HCPCS: 36415; 80048; 85014; 85018; 85025; 85610; 85730; 88304; 88305; 88311; 93005; 97116; 97139; 97161; 97530; J0690; J1100; J1170; J1650; J2250; J2270; J2405; J2550; J2704; J2710; J3010; J7120

== ENCOUNTER 2019-10-25 10:58 | Emergency (ER) | payer OTHER ==
[2019-10-25 12:57] LABS: Absolute Lymphocytes (CBC) 1.4 K/uL (0.7-4.9); Basophils % 0.4 % (0-1.3); Hematocrit 32.8 % (36.0-45.0); Lymphocytes % 22.3 % (15.3-44.8); MPV 9.6 fL (7.6-11.3); RBC Red Blood Cell Count 3.58 M/uL (3.86-4.86)
[2019-10-25 13:09] LABS: ALT/SGPT 26 U/L (12-78); AST/SGOT 14 U/L (15-37); Albumin 3.6 g/dL (3.4-5.0); Alkaline Phosphatase 102 U/L (45-117); BUN Blood Urea Nitrogen 9 mg/dL (7-18); Bicarbonate 27 mmol/L (21-32); Bilirubin Total 1.3 mg/dL (0.2-1.0); Glucose Level 99 mg/dL (74-106); Potassium 3.9 mmol/L (3.5-5.1); Sodium Level 144 mmol/L (136-145)
--- NOTE | 2019-10-25 13:09 | RAD REPORT ---
EXAM DESCRIPTION: RAD - Knee Left 3 View - 10/25/2019 12:06 pm CLINICAL HISTORY: Left knee pain FINDINGS: Left knee arthroplasty The prosthesis is in good position Medial soft tissue swelling is present. No fracture or dislocation is seen.
--- NOTE | 2019-10-25 13:10 | RAD REPORT ---
EXAM DESCRIPTION: USExtremduarte Venous Uni Ltd10/25/2019 12:34 pm CLINICAL HISTORY: left leg pain and swelling. COMPARISON: June 2019 FINDINGS: Left common femoral, superficial femoral, popliteal and posterior tibial veins are compre ssible and demonstrate augmentation. Doppler demonstrates good flow. IMPRESSION: No evidence of deep venous thrombosis involving the left lower extremity.
[2019-10-25 13:37] LABS: Protime INR 1.79
--- NOTE | 2019-10-25 13:44 | EDPHYS ---
Physician Documentation [facility] Name: Millicent Conte Age: 68 yrs Sex: Female : 1950 Arrival Date: 10/25/2019 Time: 11:03 Bed 17 Private MD: All Muñiz ED Physician Tomy Garcia HPI: 10/25 12:22 This 68 yrs old Female presents to ER via Ambulatory with complaints of Leg nh Swelling, Foot Pain, Post Surgical Pain. 12:22 The patient presents with pain, swelling, tenderness. The complaints affect the left nh knee. Onset: The symptoms/episode began/occurred yesterday. Associated signs and symptoms: The patient has no apparent associated signs or symptoms. Severity of symptoms: At their worst the symptoms were moderate, just prior to arrival, in the emergency department the symptoms are unchanged. Patient had Total knee replacement on left 10/15/19. Patient reports increase in swelling since yesterday with increased pain. Called dr brooks office and was told to come here to R/) infection. Denies fever.. Historical: - Allergies: : Codeine; hb - Immunization history:: Adult Immunizations up to date. - Social history:: Smoking status: Patient/guardian denies using tobacco. - Ebola Screening: : No symptoms or risks identified at this time. ROS: 12:22 Constitutional: Negative for fever, chills, and weight loss, Eyes: Negative for injury, nh pain, redness, and discharge, ENT: Negative for injury, pain, and discharge, Neck: Negative for injury, pain, and swelling, Cardiovascular: Negative for chest pain, palpitations, and edema, Respiratory: Negative for shortness of breath, cough, wheezing, and pleuritic chest pain, Abdomen/GI: Negative for abdominal pain, nausea, vomiting, diarrhea, and constipation, Back: Negative for injury and pain, : Negative for injury, bleeding, discharge, and swelling, Skin: Negative for injury, rash, and discoloration, Neuro: Negative for headache, weakness, numbness, tingling, and seizure, Psych: Negative for depression, anxiety, suicide ideation, homicidal ideation, and hallucinations. 12:22 MS/extremity: Positive for pain, swelling, tenderness, of the left knee. Exam: 12:22 Constitutional: This is a well developed, well nourished patient who is awake, alert, nh and in no acute distress. Head/Face: Normocephalic, atraumatic. Eyes: Pupils equal round and reactive to light, extra-ocular motions intact. Lids and lashes normal. Conjunctiva and sclera are non-icteric and not injected. Cornea within normal limits. Periorbital areas with no swelling, redness, or edema. ENT: Nares patent. No nasal discharge, no septal abnormalities noted. Tympanic membranes are normal and external auditory canals are clear. Oropharynx with no redness, swelling, or masses, exudates, or evidence of obstruction, uvula midline. Mucous membranes moist. Neck: Trachea midline, no thyromegaly or masses palpated, and no cervical lymphadenopathy. Supple, full range of motion without nuchal rigidity, or vertebral point tenderness. No Meningismus. Chest/axilla: Normal chest wall appearance and motion. Nontender with no deformity. No lesions are appreciated. Cardiovascular: Regular rate and rhythm with a normal S1 and S2. No gallops, murmurs, or rubs. Normal PMI, no JVD. No pulse deficits. Respiratory: Lungs have equal breath sounds bilaterally, clear to auscultation and percussion. No rales, rhonchi or wheezes noted. No increased work of breathing, no retractions or nasal flaring. Abdomen/GI: Soft, non-tender, with normal bowel sounds. No distension or tympany. No guarding or rebound. No evidence of tenderness throughout. Back: No spinal tenderness. No costovertebral tenderness. Full range of motion. Neuro: Awake and alert, GCS 15, oriented to person, place, time, and situation. Cranial nerves II-XII grossly intact. Motor strength 5/5 in all extremities. Sensory grossly intact. Cerebellar exam normal. Normal gait. 12:22 Musculoskeletal/extremity: Extremities: noted in the left knee: pain, swelling, tenderness, ROM: limited active range of motion due to pain, in the left knee, limited passive range of motion due to pain, in the left knee, Circulation is intact in all extremities. Sensation intact. Weight bearing: can bear weight with assistance only, uses walker. 12:22 Skin: Appearance: normal except for affected area, Patient has bruising to left upper thigh, knee area and left foot. Vital Signs: 11:31 BP 156 / 78; Pulse 63; Resp 16; Temp 98.3; Pulse Ox 99% on R/A; Weight 77.11 kg; Height hb 5 ft. 1 in. (154.94 cm); Pain 8/10; 13:35 BP 140 / 91; Pulse 60; Resp 18; Pulse Ox 99% on R/A; Pain 0/10; em 11:31 Body Mass Index 32.12 (77.11 kg, 154.94 cm) hb MDM: 11:36 Patient medically screened. me 13:42 Data reviewed: vital signs, nurses notes, lab test result(s), radiologic studies, I nh have discussed the patient's presentation/case with the attending Emergency Department Physician; and as a result, I will discharge patient. Counseling: I had a detailed discussion with the patient and/or guardian regarding: the historical points, exam findings, and any diagnostic results supporting the discharge/admit diagnosis, lab results, radiology results, the need for outpatient follow up, to return to the emergency department if symptoms worsen or persist or if there are any questions or concerns that arise at home. 10/25 11:47 Order name: CBC with Diff; Complete Time: 13:06 me 10/25 11:47 Order name: CMP; Complete Time: 13:19 me 10/25 11:47 Order name: Knee Left 3 View XRAY; Complete Time: 13:19 me 10/25 11:47 Order name: US Extremity Venous Unilateral Ltd; Complete Time: 13:19 me 10/25 11:47 Order name: PT-INR; Complete Time: 13:41 me 10/25 11:47 Order name: Ptt, Activated; Complete Time: 13:41 me Administered Medications: No medications were administered Disposition: 15:07 Co-signature as Attending Physician, Tomy Garcia MD. rn Disposition: 10/25/19 13:43 Discharged to Home. Impression: Pain in left knee. - Condition is Stable. - Discharge Instructions: Knee Pain. - Medication Reconciliation Form, Thank You Letter, Antibiotic Education, Prescription Opioid Use form. - Follow up: Private Physician; When: 2 - 3 days; Reason: Recheck today's complaints. - Problem is new. - Symptoms are unchanged. Signatures: Dispatcher [employer] EDNelida Santiago, PHOTOGRAPHY INSTRUCTOR PHOTOGRAPHY INSTRUCTOR me Cam Bergeron, WEDDING MAKEUP ARTIST WEDDING MAKEUP ARTISTTomy Pimentel MD MD rn Emili Herman RN RN Corrections: (The following items were deleted from the chart) 13:57 13:43 10/25/2019 13:43 Discharged to Home. Impression: Pain in left knee. Condition is em Stable. Forms are Medication Reconciliation Form, Thank You Letter, Antibiotic Education, Prescription Opioid Use. Follow up: Private Physician; When: 2 - 3 days; Reason: Recheck today's complaints. Problem is new. Symptoms are unchanged. nh
--- NOTE | 2019-10-25 13:44 | ER ---
Nurse's Notes [facility] Name: Millicent Conte Age: 68 yrs Sex: Female : 1950 Arrival Date: 10/25/2019 Time: 11:03 Bed 17 Private MD: All Muñiz Diagnosis: Pain in left knee Presentation: 10/25 11:29 Presenting complaint: Had Left total knee replacement by Dr. Muñiz 10/15, c/o increasing hb pain and bleeding from back of knee and swelling of left foot. Transition of care: patient was not received from another setting of care. Onset of symptoms was October 25, 2019. Risk Assessment: Do you want to hurt yourself or someone else? Patient reports no desire to harm self or others. Initial Sepsis Screen: Does the patient meet any 2 criteria? No. Patient's initial sepsis screen is negative. Does the patient have a suspected source of infection? No. Patient's initial sepsis screen is negative. Care prior to arrival: None. 11:29 Method Of Arrival: Ambulatory hb 11:29 Acuity: HELEN 3 hb Historical: - Allergies: 11:31 Codeine; hb - Immunization history:: Adult Immunizations up to date. - Social history:: Smoking status: Patient/guardian denies using tobacco. - Ebola Screening: : No symptoms or risks identified at this time. Screenin:10 Abuse screen: Denies threats or abuse. Nutritional screening: No deficits noted. em Tuberculosis screening: No symptoms or risk factors identified. Fall Risk None identified. Assessment: 12:00 General: Appears in no apparent distress. uncomfortable, Behavior is calm, cooperative, em appropriate for age, Denies fever. Pain: Complains of pain in left knee Pain currently is 8 out of 10 on a pain scale. Neuro: Level of Consciousness is awake, alert, obeys commands, Oriented to person, place, time, situation, Appropriate for age. Cardiovascular: Capillary refill < 3 seconds Patient's skin is warm and dry. Respiratory: Airway is patent Respiratory effort is even, unlabored, Respiratory pattern is regular, symmetrical. Derm: Wound noted posterior aspect of left knee surgical dressing in place on left knee, no drainage noted from dressing. Musculoskeletal: Capillary refill < 3 seconds, Range of motion: limited in left knee Swelling present in left leg. 13:24 Reassessment: Patient appears in no apparent distress at this time. Patient and/or em family updated on plan of care and expected duration. Pain level reassessed. Patient is alert, oriented x 3, equal unlabored respirations, skin warm/dry/pink. Vital Signs: 11:31 BP 156 / 78; Pulse 63; Resp 16; Temp 98.3; Pulse Ox 99% on R/A; Weight 77.11 kg; Height hb 5 ft. 1 in. (154.94 cm); Pain 8/10; 13:35 BP 140 / 91; Pulse 60; Resp 18; Pulse Ox 99% on R/A; Pain 0/10; em 11:31 Body Mass Index 32.12 (77.11 kg, 154.94 cm) hb ED Course: 11:03 Patient arrived in ED. as 11:03 Alex Ramirez MD is Private Physician. as 11:04 All Muñiz MD is Private Physician. as 11:31 Triage completed. hb 11:31 Arm band placed on. hb 11:36 Nelida Roldan FNP is PHCP. nh 11:36 Tomy Garcia MD is Attending Physician. nh 11:38 Cam Bergeron LVN is Primary Nurse. em 12:06 Knee Left 3 View XRAY In Process Unspecified. EDMS 12:10 Patient has correct armband on for positive identification. Bed in low position. Call em light in reach. Side rails up X2. Adult w/ patient. Pulse ox on. NIBP on. 12:10 Initial lab(s) drawn, by me, sent to lab. Inserted saline lock: 24 gauge in left hand, em using aseptic technique. Blood collected. 12:33 Ultrasound completed. Patient tolerated well. sg3 12:34 US Extremity Venous Unilateral Ltd In Process Unspecified. EDMS 13:56 No provider procedures requiring assistance completed. IV discontinued, intact, em bleeding controlled, No redness/swelling at site. Pressure dressing applied. Administered Medications: No medications were administered Outcome: 13:43 Discharge ordered by . nh 13:56 Discharged to home ambulatory, with family. em 13:56 Condition: good 13:56 Discharge instructions given to patient, family, Instructed on discharge instructions, follow up and referral plans. wound care, Demonstrated understanding of instructions, follow-up care, medications, wound care. 13:57 Patient left the ED. em Signatures: Dispatcher [employer] EDNelida Santiago, TAILINGS MAN TAILINGS MAN id Cam Bergeron, PROCESSING TECHNOLOGIST PROCESSING TECHNOLOGIST Pao Steen Heather, RN RN Archana Gutierrez sg3
[2019-10-25 15:59] VITALS: TEMP 98.3; O2SAT 99
[2019-10-25 16:00] VITALS: BP 140/91
== END 2019-10-25 13:57 | disposition home or self-care (01) ==
LOC: ER 10:58
DX: M25.562 Pain in left knee (principal); Z96.652 Presence of left artificial knee joint; Z88.5 Allergy status to narcotic agent
CPT/HCPCS: 36415; 80053; 85025; 85610; 85730; 93971; 99284

== ENCOUNTER 2022-08-17 11:06 | Day surgery (SDC) | payer OTHER ==
--- NOTE | 2022-08-14 16:28 | RAD REPORT ---
EXAM DESCRIPTION: Sebastián Hemphill (2 Views)08/14/2022 4:20 pm CLINICAL HISTORY: Hypertension/preop COMPARISON: 2019 FINDINGS: The lungs appear clear of acute infiltrate. The heart is borderline enlarged IMPRESSION: No acute abnormalities displayed
[2022-08-14 17:00] LABS: SARS-CoV-2 Antigen Rapid Res Negative (Negative)
[2022-08-14 17:04] LABS: Absolute Lymphocytes (CBC) 2.1 K/uL (0.7-4.9); Hematocrit 42.5 % (36.0-45.0); Lymphocytes % 33.2 % (15.3-44.8); MCV 93.2 fL (80-100); MPV 9.7 fL (7.6-11.3); RBC Red Blood Cell Count 4.56 M/uL (3.86-4.86)
[2022-08-14 17:07] LABS: Protime INR 1.11
[2022-08-14 17:18] LABS: Potassium 3.7 mmol/L (3.5-5.1)
--- NOTE | 2022-08-16 06:35 | EKG ---
Test Date: 2022-08-14 Test Time: 15:51:32 Lead Systems Architect: MIGUEL MEASUREMENT RESULTS: Intervals: Rate: 41 OH: 180 QRSD: 98 QT: 512 QTc: 422 [place]: P: 35 OH: 180 QRS: 3 T: 33 INTERPRETIVE STATEMENTS: Marked sinus bradycardia Abnormal ECG Compared to ECG 10/08/2019 09:35:12 No significant changes Electronically Signed On 08-16-22 06:31:36 CDT by Adrian Motta
[2022-08-17 11:26] VITALS: TEMP 97.5
[2022-08-17] MEDS ORDERED: NA CHLORIDE 0.9% 500 ML ONE (11:38)
[2022-08-17] MEDS ORDERED: FENTANYL CITR 100 MCG/2 ML ONE (11:45)
[2022-08-17] MEDS ORDERED: HEPARIN 5000 UNIT/ML 1 ML VIAL ONE (11:45)
[2022-08-17] MEDS ORDERED: MIDAZOLAM HCL 2 MG/2 ML INJ ONE (11:45)
[2022-08-17] MEDS ORDERED: ASPIRIN 325 MG TAB ONE (11:46)
[2022-08-17] MEDS ORDERED: HEPARIN 10,000 UNIT/10 ML VIAL IV ONE (11:46)
[2022-08-17] MEDS ORDERED: CLOPIDOGREL 75 MG TABLET ONE (11:46)
[2022-08-17] MEDS ORDERED: TICAGRELOR 90 MG TABLET PO ONE (11:46)
[2022-08-17] MEDS ORDERED: ATROPINE SULF 1 MG/10 ML SYR IV ONE (11:46)
[2022-08-17] MEDS ORDERED: VERAPAMIL HCL 10 MG/4 ML VIAL IV ONE (11:46)
[2022-08-17 15:02] VITALS: O2SAT 99
[2022-08-17 15:17] VITALS: BP 120/60
--- NOTE | 2022-08-17 15:17 | OP ---
Date of Procedure: 08/17/2022 Surgeon: KAROLINA PEREZ Procedures Performed: 1.Selective coronary angiogram. 2.Left heart catheterization. Indication: 1.Chest pain with grossly abnormal stress test. 2. on the echo. Access: Right radial artery 6-Japanese closed with TR band. Complications: None. Bleeding: Less than 10 mL. Anesthesia: Total sedation time was 35 minutes. Used fentanyl and Versed. Description Of Procedure: After risks, benefits, alternatives were explained, the patient agreed to the procedure and signed informed consent. The patient was brought into the cardiac catheterization laboratory, prepped and draped in the usual sterile fashion. Then, I accessed right radial artery us ing pediatric micropuncture kit, placed a 6-Japanese Slender sheath, and took a 5-Japanese Red Devil 4.0 cath eter into the aortic root, engaged the left main and the right coronary artery, took standard views a nd then catheter was advanced over the wire into the LV, easily measured LVEDP and pullback did not r ecord any significant gradient. Then, the catheter and sheath were removed and placed TR band with g ood hemostasis. Findings: 1.Left main; large, normal. 2.LAD; proximal and mid are normal in the distal portion. There was a focal 30% stenosis. Diagonal 1 branch has proximal 40% stenosis, but it is a large vessel. The LAD without with ROSEMARY-3 flow. 3.Left circumflex; proximal 10% to 20%, otherwise no disease. 4.RCA; large and dominant, proximal 30%, mid 30% to 40%, and otherwise is normal. 5.LVEDP elevated at 23 mmHg and no gradient across the aortic valve. Conclusion: 1.Mild nonobstructive coronary artery disease. 2.Elevated LVEDP. 3.No significant aortic stenosis. Plan: Aggressive medical management. SR/MODL Voice ID: [id number] Report ID: [id number]
== END 2022-08-17 15:26 | disposition home or self-care (01) ==
LOC: CCL 11:06
PROVIDERS: ATTEND Internal Medicine
DX: I25.110 Atherosclerotic heart disease of native coronary artery with unstable angina pectoris (principal); I10 Essential (primary) hypertension; Z87.891 Personal history of nicotine dependence; Z79.899 Other long term (current) drug therapy; Z88.5 Allergy status to narcotic agent; Z88.8 Allergy status to other drugs, medicaments and biological substances; Z20.822 Contact with and (suspected) exposure to COVID-19
CPT/HCPCS: 93005; 85025; 80048; 36415; 85610; 85730; 71046; 93458; 87811; C1893; Q9966; J1644; J2250; J3010; J7040

== ENCOUNTER 2023-01-25 11:01 | Emergency (ER) | payer OTHER ==
--- OUTSIDE RECORDS SUMMARY | 2023-01-25 11:05 | XMS REPORT | Continuity of Care Document ---
:1950 Author Organization [facility] t Address [address] [place] [address] [address] [place] [address] Care Team Providers Name Role Phone Jeff Moody Attending Clinician Unavailable Payers Payer Name Policy Type Policy Number Effective Date Expiration Date Rubio castro [employer] [id number] Common Sp heladio ing Medicare [facility] [employer] C1 [id number] Common Sp heladio ing Medicare - [facility] Problems Condition Condition Condition Status Onset Resolution Last Treating Co mments Source Name Details Category Date Date Treatment Clinician Date [id number] Anxiety Problem Active Common [facility] [id number] Insomnia, Problem Active Com mon unspecifie [facility] d [place] [facility] Hypertensi Hypertensi Problem Active C ommon on on, [facility] Disorder Circulatio Problem Active Com mon of n problem Spirit cardiovasc [facility] ular [facility] Arthritis Arthritis Problem Active Com mon of left of knee, [facility] knee left [facility] Arthritis Arthritis Problem Active Com mon of right of knee, [facility] knee right [facility] [id number] Pain in Problem Active Common right knee [facility] [id number] Sciatica Problem Active Commo n of left [facility] side [facility] [id number] Sciatica, Problem Active Co mmon [id number] right side Spiri t [facility] [id number] Primary Problem Active Comm on osteoarthr Spirit itis of - [facility] left knee [facility] [id number] Status Problem Active Commo n 105 post total Spirit left knee - [facility] repl[facility] [id number] Other Problem Active Common chronic [facility] pain - [facility] [id number] Presence Problem Active Com sun 02 of right Spirit artificial - [facility] knee joint [facility] [id number] Aftercare Problem Active Com mon following [facility] joint - [facility] repl[facility] [id number] Localized Problem Active Com mon edema Spirit - [facility] [id number] Right Problem Active Common lower Spirit quadrant - [facility] pain [facility] Urinary Urinary Problem Active Common tract tract [facility] infectious infection, - [facility] disease site not [facility] Allergies, Adverse Reactions, Alerts Allergy Allergy Status Severity Reaction(s) Onset Inactive Treating Comm ents Source Name Type Date Date Clinician Codeine Codeine Active Unknown Common [facility] Social History Social Habit Start Date Stop Date Quantity Comments Source History of Tobacco Current Smoker Co mmon Spirit - [facility] Use [facility] Sex Assigned At Com mon [facility] - [facility] Smoking Status Start Date Stop Date Source Current Smoker 2022-03-30 00:00:00 Common Spiri t [facility] Medications Ordered Filled Start Stop Current Ordering Indication Dosage Frequency Signature Comments Components Source Medication Medication Date Date Medication? Clinician (SIG) Name Name Estradiol Estradiol 2020-11 No Estradiol 0.1 MG/GM 0.1 MG/GM 1-04 0.1 MG/GM 00:00: 00 Estradiol Estradiol 2020-11 No Estradiol 0.1 MG/GM 0.1 MG/GM 1-04 0.1 MG/GM 00:00: 00 Estradiol Estradiol 2020-11 No Estradiol 0.1 MG/GM 0.1 MG/GM 1-04 0.1 MG/GM 00:00: 00 Ciprofloxac Ciprofloxac 2020-11- 1{table BID Ciprofloxa in HCl 500 in HCl 500 009-29 t} liza HCl MG MG 00:00: 00:00 500 MG 00 :00 traMADol traMADol No traMADol HCl 50 MG HCl 50 MG 12-01 HCl 50 MG 00:00: 00 traMADol traMADol 2020-0 No traMADol HCl 50 MG HCl 50 MG 06 HCl 50 MG 00:00: 00 Depo Medrol Depo Medrol 2019-0 No 40mg Common (40mg) (40mg) 204 Spirit 00:00: - [facility] Bupivicaine Bupivicaine 2019-0 No 2.5mg [place] [facility] 00:00: - [facility] Bupivicaine Bupivicaine 2019-0 No 2.5mg [facility] [place] [facility] 00:00: - [facility] Depo Medrol Depo Medrol 2019-0 No 40mg Common (40mg) (40mg) 2 Spirit 00:00: - [facility] Depo Medrol Depo Medrol 2018-0 No 40mg Common (40mg) (40mg) 2 Spirit 00:00: - [facility] Bupivicaine Bupivicaine 2019-0 No 2.5mg Common [place] [facility] 00:00: - [facility] Bupivicaine Bupivicaine 2019-0 No 2.5mg Common [place] [facility] 00:00: - [facility] Depo Medrol Depo Medrol 2019-0 No 40mg Common (40mg) (40mg) 2 Spirit 00:00: - [facility] Hyalgan 20 Hyalgan 20 2017-11 No 20mg C ommon mg mg 217 Spirit 00:00: - [facility] [place] 20 [place] 20 2017-11 No 20mg C ommon mg mg 217 [facility] 00:00: - [facility] Bupivicaine Bupivicaine 2017-1 No 2.5mg Common [place] 2 [facility] 00:00: - [facility] Bupivicaine Bupivicaine 2017- No 2.5mg Common [place] 217 [facility] 00:00: - [facility] [place] 20 Hyalgan 20 2017-11 No 20mg C ommon mg mg 217 [facility] 00:00: - [facility] [place] 20 [place] 20 2017-11 No 20mg C ommon mg mg 2-17 Spirit 00:00: - [facility]I 00 [facility] Bupivicaine Bupivicaine 2018- No 2.5mg Common [place] 2-17 [facility] 00:00: - [facility] 00 [facility] Bupivicaine Bupivicaine 2017- No 2.5mg Common [place] 2-17 [facility] 00:00: - [facility] 00 [facility] Bupivicaine Bupivicaine 2018- No 2.5mg Common [place] 2-13 [facility] 00:00: - [facility] 00 [facility] Bupivicaine Bupivicaine 2017- No 2.5mg Common [place] 2-13 [facility] 00:00: - [facility] 00 [facility] Hyalgan 20 Hyalgan 20 2017-11 No 20mg C ommon mg mg 2-13 Spirit 00:00: - [facility]I 00 [facility] [place] 20 [place] 20 2017-11 No 20mg C ommon mg mg 2-13 Spirit 00:00: - [facility] Bupivicaine Bupivicaine 2017- No 2.5mg Common [place] 2-13 [facility] 00:00: - [facility] 00 [facility] Bupivicaine Bupivicaine 2017- No 2.5mg Common [place] 2-13 [facility] 00:00: - [facility] 00 [facility] [place] 20 Hyalgan 20 2017-11 No 20mg C ommon mg mg 2-13 Spirit 00:00: - [facility]I 00 [facility] [place] 20 Hy[place] 20 2017-11 No 20mg C ommon mg mg 2-13 Spirit 00:00: - [facility] Bupivicaine Bupivicaine 2017- No 2.5mg Common [place] 2-04 [facility] 00:00: - [facility] 00 [facility] Hyal[place] 20 Hyalgan 20 2017-11 No 20mg C ommon mg mg 2-04 Spirit 00:00: - [facility] 00 [facility] Bupivicaine Bupivicaine 2017- No 2.5mg Common [place] 2-04 [facility] 00:00: - [facility] 00 [facility] [place] 20 Hyalgan 20 2017-11 No 20mg C ommon mg mg 2-04 Spirit 00:00: - [facility]I 00 [facility] Bupivicaine Bupivicaine 2017-11 No 2.5mg Common [place] 2-04 [facility] 00:00: - [facility] 00 [facility] Hyalgan 20 Hyalgan 20 2017-11 No 20mg C ommon mg mg 204 Spirit 00:00: - [facility] 00 [facility] Bupivicaine Bupivicaine 2017-11 No 2.5mg Common [place] 204 [facility] 00:00: - [facility] 00 [facility] [place] 20 Hy[place] 20 2017-11 No 20mg C ommon mg mg 204 [facility] 00:00: - [facility] 00 [facility] traZODone traZODone 0 No traZODone HCl 50 MG HCl 50 MG 1-29 HCl 50 MG 00:00: 00 traZODone traZODone 0 No traZODone HCl 50 MG HCl 50 MG 1-29 HCl 50 MG 00:00: 00 traZODone traZODone 2017-0 No traZODone HCl 50 MG HCl 50 MG 1-29 HCl 50 MG 00:00: 00 traZODone traZODone 0 No traZODone HCl 50 MG HCl 50 MG 1-29 HCl 50 MG 00:00: 00 Aleve 220 Aleve 220 No BID Aleve 220 MG MG MG Gabapentin Gabapentin No Gabapentin Ciprofloxac Ciprofloxac No 1{table BID Ciprofloxa in HCl 500 in HCl 500 t} liza HCl MG MG 500 MG Furosemide Furosemide No Furosemide Klor-Con Klor-Con No 1{table QD Klor-Con M20 20 MEQ M20 20 MEQ t_with_ M20 20 MEQ food} amLODIPine amLODIPine No 1{table QD amLODIPine Besylate 10 Besylate 10 t} Besylate MG MG 10 MG ALPRAZolam ALPRAZolam No 1{table BID ALPRAZolam 0.25 MG 0.25 MG t} 0.25 MG Vitamin C Vitamin C No Vitamin C Atenolol Atenolol No Atenolol Furosemide Furosemide No Furosemide amLODIPine amLODIPine No 1{table QD amLODIPine Besylate 10 Besylate 10 t} Besylate MG MG 10 MG Atenolol Atenolol No Atenolol ALPRAZolam ALPRAZolam No 1{table BID ALPRAZolam 0.25 MG 0.25 MG t} 0.25 MG Furosemide Furosemide No Furosemide Vitamin C Vitamin C No Vitamin C Aleve 220 Aleve 220 No BID Aleve 220 MG MG MG Klor-Con Klor-Con No 1{table QD Klor-Con M20 20 MEQ M20 20 MEQ t_with_ M20 20 MEQ food} Furosemide Furosemide No Furosemide Gabapentin Gabapentin No Gabapentin Klor-Con Klor-Con No 1{table QD Klor-Con M20 20 MEQ M20 20 MEQ t_with_ M20 20 MEQ food} Furosemide Furosemide No Furosemide Gabapentin Gabapentin No Gabapentin Aleve 220 Aleve 220 No BID Aleve 220 MG MG MG Furosemide Furosemide No Furosemide Atenolol Atenolol No Atenolol amLODIPine amLODIPine No 1{table QD amLODIPine Besylate 10 Besylate 10 t} Besylate MG MG 10 MG Vitamin C Vitamin C No Vitamin C Ciprofloxac Ciprofloxac No 1{table BID Ciprofloxa in HCl 500 in HCl 500 t} liza HCl MG MG 500 MG ALPRAZolam ALPRAZolam No 1{table BID ALPRAZolam 0.25 MG 0.25 MG t} 0.25 MG Aleve 220 Aleve 220 No BID Aleve 220 MG MG MG Gabapentin Gabapentin No Gabapentin Ciprofloxac Ciprofloxac No 1{table BID Ciprofloxa in HCl 500 in HCl 500 t} liza HCl MG MG 500 MG Furosemide Furosemide No Furosemide Klor-Con Klor-Con No 1{table QD Klor-Con M20 20 MEQ M20 20 MEQ t_with_ M20 20 MEQ food} amLODIPine amLODIPine No 1{table QD amLODIPine Besylate 10 Besylate 10 t} Besylate MG MG 10 MG ALPRAZolam ALPRAZolam No 1{table BID ALPRAZolam 0.25 MG 0.25 MG t} 0.25 MG Vitamin C Vitamin C No Vitamin C Atenolol Atenolol No Atenolol Furosemide Furosemide No Furosemide Immunizations Ordered Immunization Filled Immunization Date Status Commen ts Source Name Name Depo Medrol (40mg) Depo Medrol (40mg) 2018-12-30 Completed [facility] 10:40:00 [facility] Depo Medrol (40mg) Depo Medrol (40mg) 2018-12-30 Completed Common [facility] 10:39:00 - [facility] Bupivicaine [place] Bupivicaine [place] 2018-12-30 Completed Common [facility] 10:38:00 - [facility] Bupivicaine [place] Bupivicaine [place] 2018-12-30 Completed Common [facility] 10:33:00 - [facility] Hyalgan 20 mg Hyalgan 20 mg 2018-11-11 Completed Common S pirit 10:21:00 [facility] Hyalgan 20 mg Hyalgan 20 mg 2018-11-11 Completed Common S pirit 10:20:00 - [facility] Bupivicaine [place] Bupivicaine [place] 2018-11-11 Completed Common [facility] 10:19:00 - [facility] Bupivicaine [place] Bupivicaine [place] 2018-11-11 Completed Common [facility] 10:19:00 - [facility] Bupivicaine [place] Bupivicaine [place] 2018-11-07 Completed Common [facility] 14:52:00 - [facility] Bupivicaine [place] Bupivicaine [place] 2018-11-07 Completed Common [facility] 14:52:00 - [facility] [place] 20 mg Hyalgan 20 mg 2018-11-07 Completed Common S pirit 14:52:00 - [facility] [place] 20 mg Hyal[place] 20 mg 2018-11-07 Completed Common S pirit 14:52:00 - [facility] [place] 20 mg Hy[place] 20 mg 2018-10-29 Completed Common S pirit 09:35:00 [facility] Hy[place] 20 mg Hyalgan 20 mg 2018-10-29 Completed Common S pirit 09:34:00 - [facility] Bupivicaine [place] Bupivicaine [place] 2018-10-29 Completed Common [facility] 09:31:00 - [facility] Bupivicaine [place] Bupivicaine [place] 2018-10-29 Completed Common [facility] 09:30:00 [facility] Vital Signs Vital Name Observation Time Observation Value Comments Source weight 2022-03-30 14:00:00 168.8 [lb_av] [facility] temperature 2022-03-30 14:00:00 98 [degF] Common S pirit - [facility] bmi 2022-03-30 14:00:00 31.12 kg/m2 Common [facility] oximetry 2022-03-30 14:00:00 99 % Common [facility] respiratory rate 2022-03-30 14:00:00 16 /min Comm on [facility] blood pressure 2022-03-30 14:00:00 186 mm[Hg] Common [facility] - systolic [facility] blood pressure 2022-03-30 14:00:00 89 mm[Hg] Common [facility] - diastolic [facility] height 2022-03-30 14:00:00 61.75 [in_i] [facility] height 2021-09-22 10:40:00 61.75 [in_i] [facility] weight 2021-09-22 10:40:00 171.8 [lb_av] [facility] temperature 2021-09-22 10:40:00 98.7 [degF] [facility] bmi 2021-09-22 10:40:00 31.67 kg/m2 [facility] oximetry 2021-09-22 10:40:00 95 % [facility] blood pressure 2021-09-22 10:40:00 132 mm[Hg] [facility] - systolic [facility] blood pressure 2021-09-22 10:40:00 74 mm[Hg] [facility] - diastolic [facility] Procedures This patient has no known procedures. Encounters Start End Encounter Admission Attending Care Care Encounter Source Date/Time Date/Time Type Type Clinicians Facility Department ID 2022-01-19 Outpatient Moody, STLMLC [facility] [id number] Common 14:00:[address] [facility] 2022-01-18 Outpatient Moody, STLMLC [facility] [id number] Common 16:01:[address] [facility] 2021-12-21 Outpatient Moody, STLC [facility] [id number] Common 14:11:[address] [facility] 2021-12-21 Outpatient Moody, STLMLC STLMLC [id number] Common 14:06:[address] [facility] 2022-04-02 2022-04-02 (TEL) STLMLC STLMLC [id number] Co mmon 00:00:00 00:00:00 [facility] 2022-03-30 2022-03-30 OFFICE STLMLC STLMLC [id number] Co mmon 00:00:00 00:00:00 VISIT [facility] PT - [facility] LEVEL 4 [facility] 2021-09-29 2021-09-29 (TEL) STLMLC STLMLC [id number] Co mmon 00:00:00 00:00:00 [facility] 2021-09-22 2021-09-22 OFFICE STLMLC STLMLC [id number] Co mmon 00:00:00 00:00:00 VISIT [facility] PT LEVEL 3 [facility] Results This patient has no known results.
--- NOTE | 2023-01-25 11:38 | RAD REPORT ---
EXAM DESCRIPTION: RAD - Chest Single View - 01/25/2023 11:29 am CLINICAL HISTORY: BLUNT CHEST TRAUMA COMPARISON: <Comparisons> FINDINGS: Lines: None. Lungs: Mild nonspecific coarsening of the pulmonary interstitium. Pleural: No significant pleural effusions or pneumothorax. Cardiac: The heart size is within normal limits. Mediastinum: Within normal limits. Bones: No acute fractures. Other: None IMPRESSION: Nonspecific coarsening of the pulmonary interstitium which is unlikely related trauma bu t could reflect mild infection or inflammation.
--- NOTE | 2023-01-25 11:39 | RAD REPORT ---
EXAM DESCRIPTION: RAD - Foot Left 3 View - 01/25/2023 11:31 am CLINICAL HISTORY: PAIN COMPARISON: Chest Pa And Lat (2 Views) dated 08/14/2022; Chest Pa And Lat (2 Views) dated 05/27/2019; C hest Pa And Lat (2 Views) dated 06/09/2016Foot Left 3 View dated 02/11/2020 FINDINGS/IMPRESSION: No acute fracture. No malalignment. Plantar and dorsal aspect calcaneal spuririneo jimenez
[2023-01-25] MEDS ORDERED: KETOROLAC 30 MG/ML INJ ONE (11:57)
--- NOTE | 2023-01-25 11:58 | ER ---
Nurse's Notes [facility] Name: Millicent Conte Age: 72 yrs Sex: Female : 1950 Arrival Date: 01/25/2023 Time: 11:03 Bed 14 Private MD: Diagnosis: Fall on same level from slipping, tripping and stumbling without subsequent striking against object;Contusion of front wall of thorax;Contusion of left foot Presentation: 01/25 11:03 Chief complaint: Patient states: "I tripped on a walker on Sunday and my little aa5 granddaughter was behind me and I ended up falling onto my chest to avoid landing on my granddaughter". Pt c/o chest pain and SOB, pt reports bruising to left foot and breasts, reports abrasion to right elbow. 11:03 Acuity: HELEN 3 aa5 11:03 Method Of Arrival: Ambulatory aa5 11:03 Coronavirus screen: At this time, the client does not indicate any symptoms associated aa5 with coronavirus-19. Ebola Screen: Patient denies travel to an Ebola-affected area in the 21 days before illness onset. Initial Sepsis Screen: Does the patient meet any 2 criteria? No. Patient's initial sepsis screen is negative. Does the patient have a suspected source of infection? No. Patient's initial sepsis screen is negative. Risk Assessment: Do you want to hurt yourself or someone else? Patient reports no desire to harm self or others. Onset of symptoms was January 2023. Historical: - Allergies: 11:03 Codeine; aa5 - PMHx: 11:03 Hypertensive disorder; Aortic Stenosis; "Memory problem"; aa5 - Immunization history:: Adult Immunizations up to date. - Social history:: Smoking status: Patient denies any tobacco usage or history of. Patient/guardian denies using alcohol. Screenin:34 [facility] ED Fall Risk Assessment (Adult) History of falling in the last 3 months, ld1 including since admission No falls in past 3 months (0 pts). Abuse screen: Denies threats or abuse. Denies injuries from another. Nutritional screening: No deficits noted. Tuberculosis screening: No symptoms or risk factors identified. Assessment: 11:34 General: Appears in no apparent distress. comfortable, Behavior is calm, cooperative, ld1 appropriate for age. Pain: Denies pain. Neuro: Level of Consciousness is awake, alert, obeys commands, Oriented to person, place, time, situation. Cardiovascular: Capillary refill < 3 seconds Patient's skin is warm and dry. Respiratory: Airway is patent Respiratory effort is even, unlabored. GI: Abdomen is flat, non-distended. : No signs and/or symptoms were reported regarding the genitourinary system. EENT: No signs and/or symptoms were reported regarding the EENT system. Derm: No signs and/or symptoms reported regarding the dermatologic system. Musculoskeletal: No signs and/or symptoms reported regarding the musculoskeletal system. Vital Signs: 11:03 BP 181 / 85; Pulse 54; Resp 20 S; Temp 98.3(TE); Pulse Ox 96% on R/A; aa5 12:06 BP 160 / 88; Pulse 51; Resp 18; Pulse Ox 100% on R/A; ld1 ED Course: 11:03 Patient arrived in ED. aa5 11:03 Arm band placed on Patient placed in an exam room, on a stretcher. aa5 11:05 Mariah Dominique FNP-C is PHCP. kb 11:05 Tomy Garcia MD is Attending Physician. kb 11:22 Triage completed. aa5 11:31 Chest Single View XRAY In Process Unspecified. EDMS 11:33 Foot Left 3 View XRAY In Process Unspecified. EDMS 11:34 Britany Renae, MICK is Primary Nurse. ld1 11:34 Patient has correct armband on for positive identification. Placed in gown. Bed in low ld1 position. Call light in reach. Side rails up X2. Pulse ox on. NIBP on. Door closed. Noise minimized. Warm blanket given. 11:34 No provider procedures requiring assistance completed. ld1 12:49 Patient did not have IV access during this emergency room visit. ld1 Administered Medications: 12:04 Drug: Ketorolac 30 mg Route: IM; Site: right deltoid; ld1 Medication: 11:34 VIS not applicable for this client. ld1 Outcome: 11:57 Discharge ordered by . kb 12:49 Discharged to home ambulatory. ld1 12:49 Condition: stable 12:49 Discharge instructions given to patient, Instructed on discharge instructions, follow up and referral plans. medication usage, Demonstrated understanding of instructions, follow-up care, medications, Prescriptions given X 1. 12:49 Patient left the ED. ld1 Signatures: Dispatcher [employer] EDMariah Bautista, SHAWNEE KIMBROUGH-Bharti Zimmerman, RN RN aa5 Britany Renae RN RN ld1
--- NOTE | 2023-01-25 11:58 | EDPHYS ---
Physician Documentation [facility] Name: Millicent Conte Age: 72 yrs Sex: Female : 1950 Arrival Date: 01/25/2023 Time: 11:03 Bed 14 Private MD: ED Physician Tomy Garcia HPI: 01/25 13:17 This 72 yrs old Female presents to ER via Ambulatory with complaints of Fall Injury. kb 13:17 Details of fall: The patient fell from an upright position, while walking. Onset: The kb symptoms/episode began/occurred 2 day(s) ago. Associated injuries: The patient sustained injury to the chest, contusion, pain with movement, tenderness, dorsum of left foot, ecchymosis, painful injury. Severity of symptoms: At their worst the symptoms were moderate, in the emergency department the symptoms are unchanged. The patient has not experienced similar symptoms in the past. The patient has not recently seen a physician. Historical: - Allergies: 11:03 Codeine; aa5 - PMHx: 11:03 Hypertensive disorder; Aortic Stenosis; "Memory problem"; aa5 - Immunization history:: Adult Immunizations up to date. - Social history:: Smoking status: Patient denies any tobacco usage or history of. Patient/guardian denies using alcohol. ROS: 13:16 Constitutional: Negative for fever, chills, and weight loss. kb 13:16 Cardiovascular: Positive for chest pain, with movement. 13:16 MS/extremity: Positive for ecchymosis, pain, tenderness, of the left foot. 13:16 All other systems are negative. Exam: 13:16 Constitutional: This is a well developed, well nourished patient who is awake, alert, kb and in no acute distress. Head/Face: Normocephalic, atraumatic. Cardiovascular: Regular rate and rhythm with a normal S1 and S2. No gallops, murmurs, or rubs. No pulse deficits. Respiratory: Respirations even and unlabored. No increased work of breathing. Talking in full sentences Abdomen/GI: Soft, non-tender. No distention Skin: Warm, dry with normal turgor. Normal color. Neuro: Awake and alert, GCS 15, oriented to person, place, time, and situation. Moves all extremities. Normal gait. Psych: Awake, alert, with orientation to person, place and time. Behavior, mood, and affect are within normal limits. 13:16 Chest/axilla: Inspection: ecchymosis, that is mild, of the right breast and left breast Palpation: tenderness. 13:16 Musculoskeletal/extremity: Extremities: grossly normal except: noted in the dorsum of left foot: ecchymosis, pain, tenderness, ROM: intact in all extremities, Circulation is intact in all extremities. Sensation intact. Weight bearing: can bear weight with assistance only, uses cane. Vital Signs: 11:03 BP 181 / 85; Pulse 54; Resp 20 S; Temp 98.3(TE); Pulse Ox 96% on R/A; aa5 12:06 BP 160 / 88; Pulse 51; Resp 18; Pulse Ox 100% on R/A; ld1 MDM: 11:05 Patient medically screened. kb 13:12 Differential diagnosis: abrasion, contusion, fracture, sprain, strain. Data reviewed: miriam vital signs, nurses notes. I considered the following discharge prescriptions or medication management in the emergency department I discussed and recommended Over The Counter medications. Counseling: I had a detailed discussion with the patient and/or guardian regarding: the historical points, exam findings, and any diagnostic results supporting the discharge/admit diagnosis, radiology results, the need for outpatient follow up, a family practitioner, to return to the emergency department if symptoms worsen or persist or if there are any questions or concerns that arise at home. ED course: Patient is a 72-year-old female who presents for chest wall pain and left foot pain after falling 2 days ago. States she tripped over her granddaughter's walker and fell forward. On exam patient has tenderness upon palpation to chest wall, bruising to bilateral breasts, bruising and tenderness to dorsum of left foot. X-rays completed and reviewed, no fractures. Patient educated on symptomatic treatment and need for follow-up with PCP. Verbal understanding received.. 03 11:14 Order name: Chest Single View XRAY; Complete Time: 11:40 kb 01/25 11:14 Order name: Foot Left 3 View XRAY; Complete Time: 11:40 kb Administered Medications: 12:04 Drug: Ketorolac 30 mg Route: IM; Site: right deltoid; ld1 Disposition: 19:23 Co-signature as Attending Physician, Tomy Garcia MD I reviewed the patient's care rn provided by the Advanced Practice Provider and agree with the diagnosis and treatment plan. Disposition Summary: 01/25/23 11:57 Discharge Ordered Location: Home kb Condition: Stable kb Diagnosis - Fall on same level from slipping, tripping and stumbling without subsequent kb striking against object - Contusion of front wall of thorax kb - Contusion of left foot kb Followup: kb - With: Emergency Department - When: As needed - Reason: Worsening of condition Followup: kb - With: Private Physician - When: 2 - 3 days - Reason: Recheck today's complaints, Continuance of care, Re-evaluation by your physician Discharge Instructions: - Discharge Summary Sheet kb - Chest Wall Pain, [id number] kb - Foot Contusion, [id number] kb Forms: - Medication Reconciliation Form kb - Thank You Letter kb - Antibiotic Education kb - Prescription Opioid Use kb Prescriptions: - orphenadrine citrate 100 mg Oral Tablet Sustained Release - take 1 tablet by ORAL route 2 times per day As needed; 20 tablet; Refills: 0, kb Product Selection Permitted Signatures: Dispatcher [employer] EDMariah Bautista, WINE MASTER-C WINE MASTER-Ckb Tomy Garcia MD MD rn Calderon, Audri, RN RN aa5 Britany Renae RN RN ld1
[2023-01-25 12:55] VITALS: TEMP 98.3
[2023-01-25 12:56] VITALS: BP 160/88; O2SAT 100
== END 2023-01-25 12:49 | disposition home or self-care (01) ==
LOC: ER 11:01
DX: S20.212A Contusion of left front wall of thorax, initial encounter (principal); S90.32XA Contusion of left foot, initial encounter; W01.0XXA Fall on same level from slipping, tripping and stumbling without subsequent striking against object, initial encounter
CPT/HCPCS: 71045; 96372; 99284

== ENCOUNTER 2023-02-04 13:25 | Emergency (ER) | payer OTHER ==
--- OUTSIDE RECORDS SUMMARY | 2023-02-04 13:27 | XMS REPORT | Continuity of Care Document ---
:1950 Author Organization [facility] t Address [address] [place] [address] [address] [place] [address] Care Team Providers Name Role Phone Jeff Moody Attending Clinician Unavailable Payers Payer Name Policy Type Policy Number Effective Date Expiration Date Rubio castro [employer] C1 [id number] Common Sp heladio ing Medicare [facility] [employer] C1 [id number] Common Sp heladio ing Medicare - [facility] Problems Condition Condition Condition Status Onset Resolution Last Treating Co mments Source Name Details Category Date Date Treatment Clinician Date [id number] Anxiety Problem Active Common [facility] [id number] Insomnia, Problem Active Com mon unspecifie [facility] d [facility] Hypertensi Hypertensi Problem Active C ommon on on, [facility] Circulatio Problem Active Com mon of n problem [facility] cardiovasc [facility] ular [facility] Arthritis Arthritis Problem Active Com mon of left of knee, [facility] knee left [facility] Arthritis Arthritis Problem Active Com mon of right of knee, [facility] knee right [facility] [id number] Pain in Problem Active Common right knee [facility] [id number] Sciatica Problem Active Commo n of left [facility] side [facility] [id number] Sciatica, Problem Active Co mmon [id number] right side Spiri t [facility] [id number] Primary Problem Active Comm on osteoarthr Spirit itis of - [facility] left knee [facility] [id number] Status Problem Active Commo n 105 post total Spirit left knee - [facility] replacemen [facility] [id number] Other Problem Active Common chronic Spirit pain - [facility] [id number] Presence Problem Active Com sun 02 of right Spirit artificial - [facility] knee joint [facility] [id number] Aftercare Problem Active Com mon following [facility] joint - [facility] replacemen [facility] [id number] Localized Problem Active Com mon edema Spirit - [facility] [id number] Right Problem Active Common lower Spirit quadrant - [facility] pain [facility] Urinary Urinary Problem Active Common tract tract Spirit infectious infection, - [facility] disease site not [facility] Allergies, Adverse Reactions, Alerts Allergy Allergy Status Severity Reaction(s) Onset Inactive Treating Comm ents Source Name Type Date Date Clinician Codeine Codeine Active Unknown Common [facility] Social History Social Habit Start Date Stop Date Quantity Comments Source History of Tobacco Current Smoker Co mmon Spirit - [facility] Use [facility] Sex Assigned At Com mon [facility] - [facility] Smoking Status Start Date Stop Date Source Current Smoker 2022-03-30 00:00:00 Common Spiri t [facility] Medications Ordered Filled Start Stop Current Ordering [...] (40mg) (40mg) 204 Spirit 00:00: - [facility] Bupivicaine Bupivicaine 2019-0 No 2.5mg Common Marcell Marcell 2 Spirit 00:00: - [facility] Bupivicaine Bupivicaine 2019-0 No 2.5mg Common Marcell Marcell 2 Spirit 00:00: - [facility] Depo Medrol Depo Medrol 2019-0 No 40mg Common (40mg) (40mg) 2 Spirit 00:00: - [facility] Depo Medrol Depo Medrol 2018-0 No 40mg Common (40mg) (40mg) 2 Spirit 00:00: - [facility] Bupivicaine Bupivicaine 2019-0 No 2.5mg Common Marcell Marcell 2 Spirit 00:00: - [facility] Bupivicaine Bupivicaine 2019-0 No 2.5mg Common Marcell Marcell 2 Spirit 00:00: - [facility] Depo Medrol Depo Medrol 2019-0 No 40mg Common (40mg) (40mg) 2 Spirit 00:00: - [facility] Hyalgan 20 Hyalgan 20 2017-11 No 20mg C ommon mg mg 217 Spirit 00:00: - [facility] Hyalgan 20 Hyalgan 20 2017-11 No 20mg C ommon mg mg 217 Spirit 00:00: - [facility] Bupivicaine Bupivicaine 2017-1 No 2.5mg Common Marcell Marcell 2 Spirit 00:00: - [facility] Bupivicaine Bupivicaine 2017- No 2.5mg Common Marcell Marcell 217 Spirit 00:00: - [facility] Hyalgan 20 Hyalgan 20 2017-11 No 20mg C ommon mg mg 217 Spirit 00:00: - [facility] Hyalgan 20 Hyalgan 20 2017-11 No 20mg C ommon mg mg 2-17 Spirit 00:00: - [facility]I 00 [facility] Bupivicaine Bupivicaine 2018- No 2.5mg Common Marcell Marcell 2-17 Spirit 00:00: - [facility]I 00 [facility] Bupivicaine Bupivicaine 2017- No 2.5mg Common Marcell Marcell 2-17 Spirit 00:00: - [facility]I 00 [facility] Bupivicaine Bupivicaine 2018- No 2.5mg Common Marcell Marcell 2-13 Spirit 00:00: - [facility]I 00 [facility] Bupivicaine Bupivicaine 2017- No 2.5mg Common Marcell Marcell 2-13 Spirit 00:00: - [facility]I 00 [facility] Hyalgan 20 Hyalgan 20 2017-11 No 20mg C ommon mg mg 2-13 Spirit 00:00: - [facility]I 00 [facility] Hyalgan 20 Hyalgan 20 2017-11 No 20mg C ommon mg mg 2-13 Spirit 00:00: - [facility] Bupivicaine Bupivicaine 2017- No 2.5mg Common Marcell Marcell 2-13 Spirit 00:00: - [facility]I 00 [facility] Bupivicaine Bupivicaine 2017- No 2.5mg Common Marcell Marcell 2-13 Spirit 00:00: - [facility]I 00 [facility] Hyalgan 20 Hyalgan 20 2017-11 No 20mg C ommon mg mg 2-13 Spirit 00:00: - [facility]I 00 [facility] Hyalgan 20 Hyalgan 20 2017-11 No 20mg C ommon mg mg 2-13 Spirit 00:00: - [facility] Bupivicaine Bupivicaine 2017- No 2.5mg Common Marcell Marcell 2-04 Spirit 00:00: - [facility] 00 [facility] Hyalgan 20 Hyalgan 20 2017-11 No 20mg C ommon mg mg 2-04 Spirit 00:00: - [facility]I 00 [facility] Bupivicaine Bupivicaine 2017- No 2.5mg Common Marcell Marcell 2-04 Spirit 00:00: - [facility] 00 [facility] Hyalgan 20 Hyalgan 20 2017-11 No 20mg C ommon mg mg 2-04 Spirit 00:00: - [facility] 00 [facility] Bupivicaine Bupivicaine 2017-11 No 2.5mg Common Marcell Marcell 2-04 Spirit 00:00: - [facility] 00 [facility] Hyalgan 20 Hyalgan 20 2017-11 No 20mg C ommon mg mg 204 Spirit 00:00: - [facility] 00 [facility] Bupivicaine Bupivicaine 2017-11 No 2.5mg Common Marcell Marcell 204 Spirit 00:00: - [facility] 00 [facility] Hyalgan 20 Hyalgan 20 2017-11 No 20mg C ommon mg mg 204 Spirit 00:00: - [facility] 00 [facility] traZODone traZODone 0 No traZODone HCl 50 [...] (40mg) 2018-12-30 Completed Common [facility] 10:40:00 - [facility] Depo Medrol (40mg) Depo Medrol (40mg) 2018-12-30 Completed Common [facility] 10:39:00 - [facility] Bupivicaine Marcell Bupivicaine Marcell 2018-12-30 Completed Common [facility] 10:38:00 - [facility] Bupivicaine Marcell Bupivicaine Marcell 2018-12-30 Completed Common [facility] 10:33:00 - [facility] Hyalgan 20 mg Hyalgan 20 mg 2018-11-11 Completed Common S pirit 10:21:00 [facility] Hyalgan 20 mg Hyalgan 20 mg 2018-11-11 Completed Common S pirit 10:20:00 - [facility] Bupivicaine Marcell Bupivicaine Marcell 2018-11-11 Completed Common [facility] 10:19:00 - [facility] Bupivicaine Marcell Bupivicaine Marcell 2018-11-11 Completed Common [facility] 10:19:00 - [facility] Bupivicaine Marcell Bupivicaine Marcell 2018-11-07 Completed Common [facility] 14:52:00 - [facility] Bupivicaine Marcell Bupivicaine Marcell 2018-11-07 Completed Common [facility] 14:52:00 - [facility] Hyalgan 20 mg Hyalgan 20 mg 2018-11-07 Completed Common S pirit 14:52:00 - [facility] Hyalgan 20 mg Hyalgan 20 mg 2018-11-07 Completed Common S pirit 14:52:00 - [facility] Hyalgan 20 mg Hyalgan 20 mg 2018-10-29 Completed Common S pirit 09:35:00 [facility] Hyalgan 20 mg Hyalgan 20 mg 2018-10-29 Completed Common S pirit 09:34:00 - [facility] Bupivicaine Marcell Bupivicaine Marcell 2018-10-29 Completed Common [facility] 09:31:00 - [facility] Bupivicaine Marcell Bupivicaine Marcell 2018-10-29 Completed Common [facility] 09:30:00 [facility] Vital Signs Vital Name Observation Time Observation Value Comments Source weight 2022-03-30 14:00:00 168.8 [lb_av] Common [facility] temperature 2022-03-30 14:00:00 98 [degF] Common S pirit - [facility] bmi 2022-03-30 14:00:00 31.12 kg/m2 Common [facility] oximetry 2022-03-30 14:00:00 99 % Common [facility] respiratory rate 2022-03-30 14:00:00 16 /min Comm on [facility] blood pressure 2022-03-30 14:00:00 186 mm[Hg] Common [facility] - systolic [facility] blood pressure 2022-03-30 14:00:00 89 mm[Hg] Common [facility] - diastolic [facility] height 2022-03-30 14:00:00 61.75 [in_i] [facility] height 2021-09-22 10:40:00 61.75 [in_i] [facility] weight 2021-09-22 10:40:00 171.8 [lb_av] [facility] temperature 2021-09-22 10:40:00 98.7 [degF] [facility] bmi 2021-09-22 10:40:00 31.67 kg/m2 [facility] oximetry 2021-09-22 10:40:00 95 % [facility] blood pressure 2021-09-22 10:40:00 132 mm[Hg] [facility] - systolic [facility] blood pressure 2021-09-22 10:40:00 74 mm[Hg] [facility] - diastolic [facility] Procedures This patient has no known procedures. Encounters Start End Encounter Admission Attending Care Care Encounter Source Date/Time Date/Time Type Type Clinicians Facility Department ID 2022-01-19 Outpatient Moody, STLMLC [facility] [id number] Common 14:00:03 Jeff [facility] 2022-01-18 Outpatient Moody, STLMLC [facility] [id number] Common 16:01:01 Jeff [facility] 2021-12-21 Outpatient Moody, STLC [facility] [id number] Common 14:11:11 Jeff [facility] 2021-12-21 Outpatient Moody, STLMLC STLMLC [id number] Common 14:06:04 Jeff [id number] [facility] 2022-04-02 2022-04-02 (TEL) STLMLC STLMLC [id number] Co mmon 00:00:00 00:00:00 [facility] 2022-03-30 2022-03-30 OFFICE STLMLC STLMLC [id number] Co mmon 00:00:00 00:00:00 VISIT [facility] PT - [facility] LEVEL 4 [facility] 2021-09-29 2021-09-29 (TEL) STLMLC STLMLC [id number] Co mmon 00:00:00 00:00:00 [facility] 2021-09-22 2021-09-22 OFFICE STLMLC STLMLC [id number] Co mmon 00:00:00 00:00:00 VISIT [facility] PT LEVEL 3 [facility] Results This patient has no known results.
[2023-02-04] MEDS ORDERED: MORPHINE 4 MG/ML SYR ONE (14:07)
[2023-02-04] MEDS ORDERED: ONDANSETRON 4 MG (ODT) TAB ONE (14:08)
--- NOTE | 2023-02-04 15:26 | RAD REPORT ---
EXAM DESCRIPTION: RAD - Wrist Left 3 View - 02/04/2023 3:07 pm CLINICAL HISTORY: fall, wrist pain Pain COMPARISON: No comparisons FINDINGS: Prominent diffuse osteopenia. Significant degenerative changes seen first carpal/metacarp al joint. No evidence of fracture or dislocation.
[2023-02-04 17:28] VITALS: TEMP 97.6
[2023-02-04 17:29] VITALS: BP 135/74; O2SAT 99
--- NOTE | 2023-02-16 17:20 | ER ---
Nurse's Notes [facility] Name: Millicent Conte Age: 72 yrs Sex: Female : 1950 Arrival Date: 02/04/2023 Time: 13:30 Bed 11 Private MD: Alex Ramirez T Diagnosis: Other specified sprain of left wrist Presentation: 02/04 13:52 Chief complaint: Patient states: I do not know what happened but my wrist just started kr3 hurting. I fell on the jan 23 and was seen here in the ED. At that time her wrist was not hurting. Coronavirus screen: Vaccine status: Patient reports receiving the 2nd dose of the covid vaccine. Ebola Screen: Patient denies travel to an Ebola-affected area in the 21 days before illness onset. Initial Sepsis Screen: Does the patient meet any 2 criteria? No. Patient's initial sepsis screen is negative. Does the patient have a suspected source of infection? No. Patient's initial sepsis screen is negative. Risk Assessment: Do you want to hurt yourself or someone else? Patient reports no desire to harm self or others. Onset of symptoms was February 03, 2023. 13:52 Method Of Arrival: Ambulatory kr3 13:52 Acuity: HELEN 4 kr3 Triage Assessment: 13:59 General: Appears in no apparent distress. uncomfortable, Behavior is cooperative, kr3 appropriate for age. Pain: Complains of pain in left wrist. Historical: - Allergies: 13:57 Codeine; kr3 - PMHx: 13:57 Aortic Stenosis; Hypertensive disorder; "Memory problem"; kr3 - PSHx: 13:57 knee replacement; kr3 - Immunization history:: Adult Immunizations not up to date. - Social history:: Smoking status: Patient reports the use of cigarette tobacco products, denies chronic smoking, but will smoke occasionally. Screenin:10 [facility] ED Fall Risk Assessment (Adult) History of falling in the last 3 months, kc6 including since admission No falls in past 3 months (0 pts) Confusion or Disorientation No (0 pts) Intoxicated or Sedated No (0 pts) Impaired Gait No (0 pts) Mobility Assist Device Used Yes (1 pt) Altered Elimination No (0 pt) Score/Fall Risk Level 0 - 2 = Low Risk Oriented to surroundings, Maintained a safe environment, Educated pt \\T\\ family on fall prevention, incl call for assistance when getting out of bed, Assessed \\T\\ reinforced patient's understanding of fall precautions, Hourly rounding (assess needs \\T\\ fall precautionary measures) done. Abuse screen: Denies threats or abuse. Denies injuries from another. Nutritional screening: No deficits noted. Tuberculosis screening: No symptoms or risk factors identified. Assessment: 14:09 General: Appears in no apparent distress. uncomfortable, Behavior is calm, cooperative, kc6 appropriate for age. Pain: Complains of pain in left arm and left wrist Pain does not radiate. Pain currently is 7 out of 10 on a pain scale. Is continuous, Alleviated by rest, Aggravated by increased activity, Noted to be resistant to movement, Also complains of no other associated symptoms. Neuro: Level of Consciousness is awake, alert, obeys commands, Oriented to person, place, time, situation, Appropriate for age. Cardiovascular: Capillary refill < 3 seconds. Respiratory: Airway is patent Trachea midline Respiratory effort is even, unlabored, Respiratory pattern is regular, symmetrical. GI: No signs and/or symptoms were reported involving the gastrointestinal system. : No signs and/or symptoms were reported regarding the genitourinary system. EENT: No signs and/or symptoms were reported regarding the EENT system. Derm: No signs and/or symptoms reported regarding the dermatologic system. Skin is intact, Skin is pink, warm \\T\\ dry. Musculoskeletal: No signs and/or symptoms reported regarding the musculoskeletal system. Circulation, motion, and sensation intact. Capillary refill < 3 seconds, Range of motion: limited in left arm and left wrist. 16:29 Reassessment: No changes from previously documented assessment. Patient and/or family mb9 updated on plan of care and expected duration. Pain level reassessed. Patient is alert, oriented x 3, equal unlabored respirations, skin warm/dry/pink. Vital Signs: 13:52 Temp 97.6; kr3 13:52 BP 151 / 69; Pulse 55; Resp 17; Temp 97.6; Pulse Ox 100% on R/A; Weight 83.46 kg; kr3 Height 5 ft. 1 in. ; Pain 7/10; 16:29 BP 135 / 74; Pulse 61; Resp 16; Pulse Ox 99% ; mb9 13:52 Body Mass Index 34.77 (83.46 kg, 154.94 cm) kr3 13:52 Pain Scale: Adult kr3 ED Course: 13:30 Patient arrived in ED. mr 13:30 Alex Ramirez MD is Private Physician. mr 13:33 Shoaib Sorto PA is PHCP. jmm 13:33 Flaco Ramos MD is Attending Physician. jmm 13:57 Triage completed. kr3 13:59 Arm band placed on right wrist. Patient placed in an exam room, on a stretcher. kr3 14:01 Latisha Pretty, RN is Primary Nurse. kc6 14:10 Patient has correct armband on for positive identification. Bed in low position. Call kc6 light in reach. Side rails up X 1. Adult w/ patient. 15:09 Wrist Left (3 View) XRAY In Process Unspecified. EDMS 16:03 All Muñiz MD is Referral Physician. jmm 16:29 No provider procedures requiring assistance completed. Patient did not have IV access mb9 during this emergency room visit. Administered Medications: 14:09 Drug: morphine IM 4 mg Route: IM; Site: left deltoid; kc6 14:09 Drug: Ondansetron PO 4 mg Route: PO; kc6 Outcome: 16:03 Discharge ordered by MD. jmm 16:29 Discharged to home ambulatory. mb9 16:29 Condition: stable 16:29 Discharge instructions given to patient, Instructed on discharge instructions, follow up and referral plans. Demonstrated understanding of instructions, follow-up care, medications, Prescriptions given X 1. 16:30 Patient left the ED. mb9 Signatures: Dispatcher [employer] EDNE Shoaib Sorto PA PA jmm Rivera, Mary SagarRhea, RN RN kr3 Latisha Pretty, MICK RN [email or web address] Chavez, Josephine Galvan, RN RN mb9
--- NOTE | 2023-02-16 17:20 | EDPHYS ---
Physician Documentation [facility] Name: Millicent Conte Age: 72 yrs Sex: Female : 1950 Arrival Date: 02/04/2023 Time: 13:30 Bed 11 Private MD: Alex Ramirez T ED Physician Flaco Ramos HPI: 02/04 13:51 This 72 yrs old Female presents to ER via Ambulatory with complaints of Arm Pain, Wrist jmm Pain. 13:51 Is a 72-year-old female with history of aortic stenosis, hypertension the presents [facility] emerged department with complaints of left wrist pain which has been ongoing since a fall which occurred approximately 10 days ago. Patient was evaluated in the ED at that time did not have any wrist pain. Wrist pain began to worsen over the past few nights and has been unable to sleep due to pain. Does have a history of osteoarthritis.. Historical: - Allergies: 13:57 Codeine; kr3 - PMHx: 13:57 Aortic Stenosis; Hypertensive disorder; "Memory problem"; kr3 - PSHx: 13:57 knee replacement; kr3 - Immunization history:: Adult Immunizations not up to date. - Social history:: Smoking status: Patient reports the use of cigarette tobacco products, denies chronic smoking, but will smoke occasionally. ROS: 13:51 Constitutional: Negative for fever, chills, and weight loss, Cardiovascular: Negative jmm for chest pain, palpitations, and edema, Respiratory: Negative for shortness of breath, cough, wheezing, and pleuritic chest pain. 13:51 MS/extremity: Positive for pain. 13:51 All other systems are negative. Exam: 13:51 Constitutional: This is a well developed, well nourished patient who is awake, alert, jmm and in no acute distress. Head/Face: atraumatic. Eyes: EOMI, no conjunctival erythema appreciated ENT: Moist Mucus Membranes Neck: Trachea midline, Supple Chest/axilla: Normal chest wall appearance and motion. Cardiovascular: Regular rate and rhythm. No edema appreciated Respiratory: Normal respirations, no respiratory distress appreciated Abdomen/GI: Non distended Back: Normal ROM Skin: General appearance color normal 13:51 Musculoskeletal/extremity: Left wrist is diffusely tender to palpation, full radial pulse, compartments are soft, neurovascular intact. 13:51 Skin: Appearance: Color: normal in color, abscess. 13:51 Neuro: Orientation: appropriate for stated age, Mentation: is normal, Memory: is normal. 13:51 Psych: Behavior/mood is pleasant, cooperative. Vital Signs: 13:52 Temp 97.6; kr3 13:52 BP 151 / 69; Pulse 55; Resp 17; Temp 97.6; Pulse Ox 100% on R/A; Weight 83.46 kg; kr3 Height 5 ft. 1 in. ; Pain 7/10; 16:29 BP 135 / 74; Pulse 61; Resp 16; Pulse Ox 99% ; mb9 13:52 Body Mass Index 34.77 (83.46 kg, 154.94 cm) kr3 13:52 Pain Scale: Adult kr3 MDM: 13:51 Patient medically screened. [facility] 19:14 Differential diagnosis: closed fracture, tendonitis. Data reviewed: vital signs, nurses sharda notes, radiologic studies. I considered the following discharge prescriptions or medication management in the emergency department Medications were administered in the Emergency Department. See MAR. Independent interpretation of the following test(s) in the Emergency Department X-Ray: My interpretation is No fracture appreciated. Counseling: I had a detailed discussion with the patient and/or guardian regarding: the historical points, exam findings, and any diagnostic results supporting the discharge/admit diagnosis, radiology results, the need for outpatient follow up, to return to the emergency department if symptoms worsen or persist or if there are any questions or concerns that arise at home. 02/04 13:51 Order name: Wrist Left (3 View) XRAY; Complete Time: 15:31 [facility] Administered Medications: 14:09 Drug: morphine IM 4 mg Route: IM; Site: left deltoid; kc6 14:09 Drug: Ondansetron PO 4 mg Route: PO; kc6 Disposition Summary: 02/04/23 16:03 Discharge Ordered Location: Home [facility] Condition: Stable [facility] Diagnosis - Other specified sprain of left wrist [facility] Followup: [facility] - With: All Muñiz MD - When: 2 - 3 days - Reason: Recheck today's complaints, Continuance of care, Re-evaluation by your physician Discharge Instructions: - Discharge Summary Sheet [facility] - Wrist Sprain Rehab [facility] Forms: - Medication Reconciliation Form [facility] - Thank You Letter jacqueline - Antibiotic Education jmm - Prescription Opioid Use jmm Prescriptions: - Ultracet 37.5-325 mg Oral Tablet - take 1 tablet by ORAL route every 6 hours - for up to 5 days; do not exceed 8 jmm tablets per day.; 20 tablet; Refills: 0, Product Selection Permitted Addendum: 02/09/2023 08:03 Co-signature as Attending Physician, Flaco Ramos MD I reviewed the patient's care r t provided by the Advanced Practice Provider and agree with the diagnosis and treatment plan. Signatures: Dispatcher [employer] EDMS Shoaib Sorto PA PA jmm Reid, Kelley RN RN kr3 Latisha Pretty RN RN kc6 Flaco Ramos MD MD rt
== END 2023-02-04 16:30 | disposition home or self-care (01) ==
LOC: ER 13:25
DX: S63.592A Other specified sprain of left wrist, initial encounter (principal); I10 Essential (primary) hypertension; F17.210 Nicotine dependence, cigarettes, uncomplicated; Z88.5 Allergy status to narcotic agent
CPT/HCPCS: 73110; 96372; 99283; Q0162